=== PATIENT | female | born 1985 | race Two or more races ===

== ENCOUNTER → 2016-08-07 | Outpatient (REF) | payer OTHER ==
[~2016-08-07] MED LIST: /RANI15TA PO; ACET50TA PO; IBUP200T2 PO; LABE10TAB PO; PRENTAB9 PO; ZOLO100T PO
== END ==
LOC: M SFHCLERA 19:56
PROVIDERS: ATTEND Physician Assistant
DX: R30.0 Dysuria (principal)

== ENCOUNTER → 2016-10-19 | Outpatient (REF) | payer OTHER | LOC: M SFHCLERA 18:06 | PROVIDERS: ATTEND Physician Assistant | DX: R30.0 Dysuria (principal) ==

== ENCOUNTER → 2017-01-07 | Outpatient (CLI) | payer OTHER ==
[2017-01-07 20:00] LABS: ALBUMIN 3.7 GM/DL (3.2-5.2); ALBUMIN/GLOBULIN RATIO 0.95 (1.00-1.93); ALKALINE PHOSPHATASE 130 U/L (45-117); ALT/SGPT 64 U/L (12-78); AST/SGOT 24 U/L (15-37); BILIRUBIN,DIRECT < 0.1 MG/DL (0.0-0.2); BILIRUBIN,TOTAL 0.2 MG/DL (0.2-1.0); TOTAL PROTEIN 7.6 GM/DL (6.4-8.2)
== END ==
LOC: M LAB 18:37
PROVIDERS: ATTEND Family Medicine
DX: F11.20 Opioid dependence, uncomplicated (principal)

== ENCOUNTER → 2018-04-22 | Outpatient (CLI) | payer OTHER ==
[2018-04-22 12:48] LABS: ALBUMIN 3.9 GM/DL (3.2-5.2); BILIRUBIN,DIRECT 0.1 MG/DL (0.0-0.2); BILIRUBIN,TOTAL 0.2 MG/DL (0.2-1.0); TOTAL PROTEIN 7.1 GM/DL (6.4-8.2)
== END ==
LOC: M LAB 11:06
PROVIDERS: ATTEND Family Medicine
DX: F11.20 Opioid dependence, uncomplicated (principal)

== ENCOUNTER → 2018-05-11 | Outpatient (REF) | payer OTHER | LOC: M SFHCLERA 13:53 | PROVIDERS: ATTEND Nurse Practitioner Family | DX: R53.81 Other malaise (principal) ==

== ENCOUNTER → 2018-08-20 | Outpatient (CLI) | payer OTHER ==
[~2018-08-20] MED LIST changes: -/RANI15TA PO; -ACET50TA PO; +MAPA500T17 PO; +RANI1TAB17 PO
[2018-08-20 10:37] LABS: BASO % 0.4 % (0.0-1.0); EOS # 0.5 10^3/uL (0.0-0.50); EOS % 4.2 % (0.0-3.0); HEMATOCRIT 42.5 % (36.0-47.0); HEMOGLOBIN 14.1 g/dl (12.0-15.5); LYMPH % 27.7 % (24.0-44.0); MEAN CORPUSCULAR HGB CONC 33.2 g/dl (32.0-36.5); MEAN CORPUSCULAR VOLUME 87.3 fl (80.0-96.0); MONO # 0.8 10^3/uL (0.0-0.8); MONO % 7.1 % (0.0-5.0); NEUTROPHILS # 6.5 10^3/uL (1.8-7.7); NEUTROPHILS % 60.3 % (36.0-66.0); PLATELET COUNT, AUTOMATED 231 10^3/uL (150-450); RED BLOOD COUNT 4.87 10^6/uL (4.00-5.40); WHITE BLOOD COUNT 10.8 10^3/uL (4.0-10.0)
[2018-08-20 10:38] LABS: AMORPHOUS SEDIMENT MODERATE (NEGATIVE); APPEARANCE, URINE CLOUDY (CLEAR); BACTERIA, URINE AUTO NEGATIVE (NEGATIVE); BILIRUBIN, URINE AUTO NEGATIVE (NEGATIVE); BLOOD, URINE BLOOD NEGATIVE (NEGATIVE); COLOR, URINE YELLOW (YELLOW); GLUCOSE, URINE (UA) AUTO NEGATIVE (NEGATIVE); KETONE, URINE AUTO NEGATIVE (NEGATIVE); LEUKOCYTE ESTERASE, URINE AUTO NEGATIVE (NEGATIVE); NITRITE, URINE AUTO NEGATIVE (NEGATIVE); PROTEIN, URINE AUTO NEGATIVE (NEGATIVE); RBC, URINE AUTO 1 /HPF (0-3); SPECIFIC GRAVITY URINE AUTO 1.017 (1.002-1.035); SQUAMOUS EPITHELIAL CELL UR AU 1 /HPF (0-6); WBC, URINE AUTO 0 /HPF (0-3)
[2018-08-20 11:08] LABS: ALBUMIN 4.3 GM/DL (3.2-5.2); ALT/SGPT 62 U/L (12-78); BILIRUBIN,TOTAL 0.1 MG/DL (0.2-1.0); BLOOD UREA NITROGEN 14 MG/DL (7-18); CALCIUM LEVEL 9.6 MG/DL (8.5-10.1); CARBON DIOXIDE LEVEL 24 MEQ/L (21-32); CHLORIDE LEVEL 109 MEQ/L (98-107); CHOLESTEROL LEVEL 236 MG/DL (<200); CREATININE FOR GFR 0.97 MG/DL (0.55-1.30); FREE T4 0.89 NG/DL (0.76-1.46); GLOMERULAR FILTRATION RATE > 60.0 (>60); GLUCOSE, FASTING 91 MG/DL (70-100); HDL CHOLESTEROL 46 MG/DL (>40); LDL CHOLESTEROL 163 MG/DL (<100); NON-HDL-C 190 MG/DL; POTASSIUM SERUM 4.1 MEQ/L (3.5-5.1); SODIUM LEVEL 141 MEQ/L (136-145); TOTAL PROTEIN 7.6 GM/DL (6.4-8.2); TRIGLYCERIDES LEVEL 136 MG/DL (<150)
[2018-08-20 11:17] LABS: VITAMIN B12 LEVEL 590 PG/ML (247-911)
== END ==
LOC: M LAB 09:57
PROVIDERS: ATTEND Family Medicine
DX: I73.00 Raynaud's syndrome without gangrene (principal); E55.9 Vitamin D deficiency, unspecified

== ENCOUNTER 2018-10-20 12:06 | Emergency (ER) | payer OTHER ==
[~2018-10-20] VITALS: Ht 165.1 cm; Wt 72.7 kg
[2018-10-20] MEDS ORDERED: LORA-674 (12:14)
[2018-10-20] MEDS ORDERED: TOPI50TA9 (12:14)
[2018-10-20] MEDS ORDERED: DESV100T3 (12:14)
[2018-10-20] MEDS ORDERED: GABA-843 (12:14)
[2018-10-20] MEDS ORDERED: BUPREN/NALOX (12:14)
[2018-10-20] MEDS ORDERED: GUAN2TAB (12:14)
[2018-10-20] MEDS ORDERED: D3-5CAP (12:14)
[2018-10-20] MEDS ORDERED: LAMO100T (12:14)
[2018-10-20] MEDS ORDERED: NIFE30TA7 (12:14)
[2018-10-20 13:10] LABS: BASO % 0.1 % (0.0-1.0); EOS # 0.1 10^3/uL (0.0-0.50); EOS % 0.4 % (0.0-3.0); HEMATOCRIT 35.9 % (36.0-47.0); HEMOGLOBIN 11.9 g/dl (12.0-15.5); LYMPH # 1.8 10^3/uL (1.5-4.5); LYMPH % 12.7 % (24.0-44.0); MEAN CORPUSCULAR HEMOGLOBIN 29.8 pg (27.0-33.0); MEAN CORPUSCULAR HGB CONC 33.1 g/dl (32.0-36.5); MEAN CORPUSCULAR VOLUME 89.8 fl (80.0-96.0); MONO # 1.5 10^3/uL (0.0-0.8); MONO % 10.6 % (0.0-5.0); NEUTROPHILS # 10.6 10^3/uL (1.8-7.7); NEUTROPHILS % 75.8 % (36.0-66.0); PLATELET COUNT, AUTOMATED 203 10^3/uL (150-450)
[2018-10-20 13:37] LABS: HCG, SERUM QUALITATIVE NEGATIVE (NEGATIVE)
[2018-10-20 13:40] LABS: ALT/SGPT 104 U/L (12-78); BILIRUBIN,TOTAL 0.4 MG/DL (0.2-1.0); BLOOD UREA NITROGEN 7 MG/DL (7-18); CALCIUM LEVEL 8.9 MG/DL (8.5-10.1); CARBON DIOXIDE LEVEL 28 MEQ/L (21-32); CHLORIDE LEVEL 105 MEQ/L (98-107); CREATININE FOR GFR 0.77 MG/DL (0.55-1.30); GLOMERULAR FILTRATION RATE > 60.0 (>60); GLUCOSE, FASTING 121 MG/DL (70-100); POTASSIUM SERUM 4.2 MEQ/L (3.5-5.1); SODIUM LEVEL 138 MEQ/L (136-145)
[2018-10-20 13:41] LABS: ALBUMIN 3.5 GM/DL (3.2-5.2); BILIRUBIN,DIRECT < 0.1 MG/DL (0.0-0.2); LIPASE 81 U/L (73-393)
[2018-10-20] MEDS ORDERED: ONDANSETRON 4MG/2ML VIAL (J2405) IV ONE (15:00)
[2018-10-20] MEDS ORDERED: KETOROLAC 30 MG/ML VIAL (J1885) IV ONE (15:00)
--- NOTE | 2018-10-20 16:46 | REP ---
REASON: Flank pain. PRIORS: None. The lung bases are clear. The patient is status-post cholecystectomy. Limited evaluation of the liver and spleen show no gross abnormalities. Limited evaluation of the pancreas and adrenal glands showed no gross abnormalities. There is no nephroureterolithiasis, hydronephrosis, or hydroureter. There are no urinary bladder calcifications. Limited evaluation of the bowel loops and their mesenteries are showed no gross abnormalities. Limited evaluation of the abdominal aorta and paraaortic regions show no gross abnormalities. Bone window technique throughout the examination shows the osseous structures to be within normal limits. IMPRESSION: Negative limited exam as described above. Electronically Signed by Getachew Cardenas DO 10/20/2018 05:19 P
[2018-10-20] MEDS ORDERED: PHEN-501 PO (17:20)
[2018-10-20] MEDS ORDERED: MACR100C43 PO (17:20)
[2018-10-20] MEDS ORDERED: KETO10TAB PO (17:20)
[2018-10-20 17:28] VITALS: BP 107/67
== END 2018-10-20 17:32 | disposition home or self-care (01) ==
LOC: M ED 12:06
DX: N39.0 Urinary tract infection, site not specified (principal); Z87.448 Personal history of other diseases of urinary system; I10 Essential (primary) hypertension; Z72.0 Tobacco use
CPT/HCPCS: 74176; 80048; 80076; 81001; 83690; 84703; 85025; 87088; 87186; 96374; 96375; 99284; J1885; J2405

== ENCOUNTER 2019-02-21 14:21 | Emergency (ER) | payer OTHER ==
[~2019-02-21] VITALS: Ht 165.1 cm; Wt 74.1 kg
[~2019-02-21 14:21] MED LIST changes: +BUPREN/NALOX; +D3-5CAP; +DESV100T3; +GABA-843; +GUAN2TAB; +KETO10TAB PO; +LAMO100T3; +LORA-674; +MACR100C43 PO; +NIFE30TA7; +PHEN-501 PO; +TOPI50TA9
[2019-02-21] MEDS ORDERED: ATOM80CA6 (14:45)
[2019-02-21 15:09] LABS: BASO % 0.3 % (0.0-1.0); EOS # 0.1 10^3/uL (0.0-0.5); EOS % 1.1 % (0.0-3.0); HEMATOCRIT 43.8 % (36.0-47.0); HEMOGLOBIN 14.2 g/dl (12.0-15.5); LYMPH % 21.3 % (24.0-44.0); MEAN CORPUSCULAR HEMOGLOBIN 28.7 pg (27.0-33.0); MEAN CORPUSCULAR HGB CONC 32.4 g/dl (32.0-36.5); MEAN CORPUSCULAR VOLUME 88.7 fl (80.0-96.0); MONO # 0.7 10^3/uL (0.0-0.8); MONO % 7.2 % (0.0-5.0); NEUTROPHILS # 6.6 10^3/uL (1.5-8.5); NEUTROPHILS % 69.9 % (36.0-66.0); PLATELET COUNT, AUTOMATED 223 10^3/uL (150-450); RED BLOOD COUNT 4.94 10^6/uL (4.00-5.40); WHITE BLOOD COUNT 9.4 10^3/uL (4.0-10.0)
[2019-02-21 15:57] LABS: ALBUMIN 4.2 GM/DL (3.2-5.2); ALT/SGPT 27 U/L (12-78); BILIRUBIN,DIRECT < 0.1 MG/DL (0.0-0.2); BILIRUBIN,TOTAL 0.3 MG/DL (0.2-1.0); BLOOD UREA NITROGEN 8 MG/DL (7-18); CALCIUM LEVEL 9.3 MG/DL (8.5-10.1); CARBON DIOXIDE LEVEL 24 MEQ/L (21-32); CHLORIDE LEVEL 108 MEQ/L (98-107); CREATININE FOR GFR 0.84 MG/DL (0.55-1.30); GLOMERULAR FILTRATION RATE > 60.0 (>60); GLUCOSE, FASTING 99 MG/DL (70-100); HCG, SERUM QUANTITATIVE 16178 MIU/ML; LIPASE 102 U/L (73-393); POTASSIUM SERUM 4.1 MEQ/L (3.5-5.1); SODIUM LEVEL 139 MEQ/L (136-145); TOTAL PROTEIN 8.1 GM/DL (6.4-8.2)
[2019-02-21 17:18] VITALS: BP 128/72
[2019-02-21] MEDS ORDERED: ONDA4TAB6 PO (17:36)
[2019-02-21] MEDS ORDERED: MACR100C43 PO (17:36)
[2019-02-21] MEDS ORDERED: NITROFURANTOIN (MACROBID) 100 MG CAP PO ONE (17:45)
[2019-02-21] MEDS ORDERED: ONDANSETRON 4 MG ORAL DISINTEGRATING TAB (Q0162 PER 1MG) PO ONE (17:45)
--- NOTE | 2019-02-22 09:01 | REP ---
PELVIC AND ENDOVAGINAL PROBE OB ULTRASOUND: 02/21/2019. CLINICAL HISTORY: First trimester , cramping. By LMP, 5 weeks 6 days. FINDINGS: Transabdominal and endovaginal probes were performed with the bladder underfilled. Uterus is anteverted and anteflexed. There is a gestational sac in the fundus. On the EV probe, there is a yolk sac evident as well as a pole, and pole shows heart activity at 96 BPM and it measures 3 mm, corresponding to 5 weeks 6 days and giving EDC 10/18/2019. No subchorionic bleed. Left ovary is 2.2 x 1.4 x 2.1 cm. Shows normal Doppler tracing with resistive index 0.42 and no adjacent free fluid. The right ovary measures 3.1 x 2.8 x 2.5 cm. There is a presumed hemorrhagic corpus luteum and measuring 2.6 x 2.2 x 1.1 cm. Right ovarian Doppler shows resistive index of 0.4. There is no color flow within the complex hemorrhagic follicle or hemorrhagic corpus luteum. Other smaller follicles are seen. IMPRESSION: 1. Single intrauterine gestation at 5 weeks 6 days by crown-rump length, precisely matching LMP and giving EDC 10/18/2019. 2. Right ovarian hemorrhagic corpus luteum. No subchorionic bleed. Left ovary unremarkable. 3. heart rate 96 BPM. Electronically Signed by Luisito Mendes MD 02/22/2019 09:12 A
== END 2019-02-21 17:46 | disposition home or self-care (01) ==
LOC: M ED 14:21
DX: N30.90 Cystitis, unspecified without hematuria (principal); Z32.01 Encounter for pregnancy test, result positive; I10 Essential (primary) hypertension; E78.00 Pure hypercholesterolemia, unspecified; F41.9 Anxiety disorder, unspecified; F32.9 Major depressive disorder, single episode, unspecified; F17.200 Nicotine dependence, unspecified, uncomplicated; Z88.5 Allergy status to narcotic agent; Z79.899 Other long term (current) drug therapy
CPT/HCPCS: 36415; 76801; 76817; 80048; 80076; 81001; 83690; 84702; 85025; 87088; 87186; 93976; 99283; Q0162

== ENCOUNTER → 2019-03-30 | Outpatient (REF) | payer OTHER ==
[~2019-03-30] MED LIST changes: +ATOM80CA6; +NIFE1TAB52; -NIFE30TA7; +ONDA4TAB6 PO
== END ==
LOC: M PLALAB 13:56
PROVIDERS: ATTEND Advanced Practice Midwife
DX: Z34.91 Encounter for supervision of normal pregnancy, unspecified, first trimester (principal)

== ENCOUNTER → 2019-04-01 | Outpatient (CLI) | payer OTHER ==
[2019-04-01 14:04] LABS: BASO % 0.1 % (0.0-1.0); EOS # 0.1 10^3/uL (0.0-0.5); EOS % 1.2 % (0.0-3.0); HEMATOCRIT 36.1 % (36.0-47.0); HEMOGLOBIN 11.7 g/dl (12.0-15.5); LYMPH # 1.9 10^3/uL (1.5-5.0); LYMPH % 18.2 % (24.0-44.0); MEAN CORPUSCULAR HGB CONC 32.4 g/dl (32.0-36.5); MEAN CORPUSCULAR VOLUME 89.6 fl (80.0-96.0); MONO # 0.5 10^3/uL (0.0-0.8); MONO % 5.2 % (0.0-5.0); NEUTROPHILS # 7.6 10^3/uL (1.5-8.5); NEUTROPHILS % 74.8 % (36.0-66.0); PLATELET COUNT, AUTOMATED 212 10^3/uL (150-450); RED BLOOD COUNT 4.03 10^6/uL (4.00-5.40); WHITE BLOOD COUNT 10.2 10^3/uL (4.0-10.0)
[2019-04-01 14:24] LABS: CREATININE,RANDOM URINE 93.5 MG/DL
[2019-04-01 14:25] LABS: ALT/SGPT 38 U/L (12-78); BILIRUBIN,TOTAL 0.2 MG/DL (0.2-1.0); CREATININE FOR GFR 0.59 MG/DL (0.55-1.30); GLOMERULAR FILTRATION RATE > 60.0 (>60); LDH LACTATE DEHYDROGENASE 158 U/L (84-246); URIC ACID 2.4 MG/DL (2.6-6.0)
[2019-04-01 14:45] LABS: RUBELLA IgG QUALITATIVE IMMUNE (IMMUNE)
[2019-04-01 15:13] LABS: HEPATITIS C VIRUS ABY INDEX < 0.0 INDEX (<0.8); HIV 1&2 SCREEN CENTAUR NEGATIVE (NEGATIVE)
[2019-04-01 15:44] LABS: CHLAMYDIA DNA AMPLIFICATION NEGATIVE (NEGATIVE); GC DNA AMPLIFICATION NEGATIVE (NEGATIVE)
== END ==
LOC: M PLALAB 11:20
PROVIDERS: ATTEND Advanced Practice Midwife
DX: Z34.91 Encounter for supervision of normal pregnancy, unspecified, first trimester (principal)

== ENCOUNTER → 2019-05-28 | Outpatient (CLI) | payer OTHER ==
--- NOTE | 2019-05-29 07:05 | REP ---
Clinical: Anatomical evaluation. Comparison: None . Findings: Examination demonstrates a single live intrauterine in transverse (head to maternal right) presentation. motion is identified by technologist. Placenta is noted right lateral and grade I I without evidence for placenta previa or abruption. Amniotic fluid volume is normal. Cervix measures 3.1 cm in length and appears closed. No evidence for nuchal cord. Gestational age by LMP 19 weeks 4 days with FAVIOLA 10/18/2019 . Gestational age by current measurements 19 weeks 3 days with FAVIOLA 10/19/2019 . FHR equals 138 beats per minute. BPD 4.6 cm 19 weeks 6 days HC 17.4 cm 19 weeks 6 days AC 14.2 cm 19 weeks 4 days FL 3.1 cm 19 weeks 3 days HL 3.0 cm 19 weeks 5 days HC/AC ratio 1.22 Estimated weight 300 grams ( 45th percentile). Anatomical assessment demonstrates normal structures including cranium, choroid plexus, cavum, cerebellum/posterior fossa, facial features, lungs, diaphragm, stomach, cord insertion/three-vessel cord, kidneys/bladder, spine, and extremities. Impression: 1. Single live intrauterine in transverse lie demonstrating appropriate interval growth. 2. Limited evaluation of the heart/ventricular outflow tracts. Remainder of the anatomical assessment is complete and normal.
== END ==
LOC: M WHC 13:03
PROVIDERS: ATTEND Obstetrics & Gynecology
DX: Z3A.15 15 weeks gestation of pregnancy (principal)

== ENCOUNTER → 2019-07-22 | Outpatient (REF) | payer OTHER ==
[2019-07-22 18:35] LABS: HEMOGLOBIN 11.4 g/dl (12.0-15.5); MEAN CORPUSCULAR HEMOGLOBIN 29.4 pg (27.0-33.0); MEAN CORPUSCULAR HGB CONC 32.6 g/dl (32.0-36.5); MEAN CORPUSCULAR VOLUME 90.2 fl (80.0-96.0); PLATELET COUNT, AUTOMATED 173 10^3/uL (150-450); RED BLOOD COUNT 3.88 10^6/uL (4.00-5.40); WHITE BLOOD COUNT 11.1 10^3/uL (4.0-10.0)
== END ==
LOC: M PLALAB 14:33
PROVIDERS: ATTEND Specialist
DX: Z34.82 Encounter for supervision of other normal pregnancy, second trimester (principal)

== ENCOUNTER → 2019-07-22 | Outpatient (CLI) | payer OTHER ==
[2019-07-22 18:55] LABS: ALT/SGPT 28 U/L (12-78); BILIRUBIN,DIRECT < 0.1 MG/DL (0.0-0.2); BILIRUBIN,TOTAL 0.2 MG/DL (0.2-1.0); TOTAL PROTEIN 6.6 GM/DL (6.4-8.2)
== END ==
LOC: M PLALAB 14:28
PROVIDERS: ATTEND Family Medicine
DX: F11.11 Opioid abuse, in remission (principal)

== ENCOUNTER 2019-09-11 07:45 | Inpatient (IN) | payer OTHER ==
[2019-09-11] VITALS (8 sets, daily range): BP systolic 106–147; BP diastolic 55–81
[~2019-09-11] VITALS: Ht 165.1 cm; Wt 70.2 kg
[~2019-09-11 07:45] MED LIST changes: +GABA-282; -GABA-843
[2019-09-11] MEDS ORDERED: PROZ40CA PO (08:47)
[2019-09-11] MEDS ORDERED: COLA100C5 PO (08:47)
[2019-09-11] MEDS ORDERED: BUPR8SUB SL (08:47)
[2019-09-11] MEDS ORDERED: PRENTAB9 PO (08:47)
[2019-09-11] MEDS ORDERED: lamoTRIgine 100MG TAB PO SCH (09:00)
[2019-09-11] MEDS ORDERED: LACTATED RINGER'S 1000 ML IV STA (09:00)
[2019-09-11] MEDS ORDERED: PENICILLIN G POTASSIUM IV 5 MU in D5W MINI-BAG PLUS 100 ML IV STA (09:00)
[2019-09-11] MEDS ORDERED: BETAMETHASONE SOLUSPAN 6MG/ML 5ML VIAL (J0702 PER 3MG) IM SCH (09:30)
[2019-09-11 09:43] LABS: HEMOGLOBIN 11.5 g/dl (12.0-15.5); MEAN CORPUSCULAR HEMOGLOBIN 29.2 pg (27.0-33.0); MEAN CORPUSCULAR HGB CONC 32.9 g/dl (32.0-36.5); MEAN CORPUSCULAR VOLUME 88.8 fl (80.0-96.0); PLATELET COUNT, AUTOMATED 131 10^3/uL (150-450); RED BLOOD COUNT 3.94 10^6/uL (4.00-5.40); WHITE BLOOD COUNT 21.5 10^3/uL (4.0-10.0)
[2019-09-11] MEDS ORDERED: PROMETHAZINE INJ 25 MG/ML VIAL (J2550) IV ONE (10:00)
[2019-09-11] MEDS ORDERED: BUTORPHANOL 2 MG/ML INJ (J0595) IV ONE (10:00)
[2019-09-11 10:13] LABS: ALT/SGPT 16 U/L (12-78); BILIRUBIN,TOTAL 0.2 MG/DL (0.2-1.0); CREATININE FOR GFR 0.55 MG/DL (0.55-1.30); GLOMERULAR FILTRATION RATE > 60.0 (>60); LDH LACTATE DEHYDROGENASE 187 U/L (84-246); URIC ACID 3.7 MG/DL (2.6-6.0)
--- NOTE | 2019-09-11 10:13 | HPEPDOC ---
Obstetrical History & Physical General Date of Admission Sep 11, 2019 at 08:47 History of Present Illness Chief Complaint: Contractions, pre-term, LOF, pre-term Information Provided By: Patient Age: 34 : 4 Term: 3 Pre-term: 0 Abortions: 0 Livin Care Care: Good Care Dating Final EDC: Oct 18, 2019 Final EDC by: 1st trimester (US) EGA at Admission: 34 (+5) Antepartum Course Admission Weight (lbs.): 158 Past Medical History Past Obstetrical History #1: Past Obstetrical History: Primgravida (2004) Type of Delivery: Spontaneous Vaginal Del. Sex of Infant: Female (7#11) Complications: No (adopted out) Past Obstetrical History #2: Past Obstetrical History: Multigravida (2007) Type of Delivery: Spontaneous Vaginal Del. Sex of : Female (5#6) Complications: No (adopted out) Past Obstetrical History #3: Past Obstetrical History: Multigravida (2013) Type of Delivery: Spontaneous Vaginal Del. Sex of Infant: Male (7#12) Complications: No LOFTSMAN/WOMAN History: Abnormal Pap (LEEP 6 years ago) Past Medical History Surgical History: Appendectomy, Gallbladder, Other (hand) Family History Significant Family History: No pertinent family hx Social History Marital Status: Single Psychosocial History: Anxiety, Bipolar, Depression * Smoker: current smoker Alcohol: Denies Drugs: other (hx addiction, clean x 5 years. currently on subutex. occasional marijuana) Imunizations Tdap status: needs Allergies Coded Allergies: codeine (Verified Allergy, Severe, eyes swell and scalp itches, 10/20/18) Medications Scheduled Buprenorphine HCl (Buprenorphine HCl) 8 Mg Tab.subl, 12 MG SL DAILY Docusate Sodium (Colace) 100 Mg Capsule, 1 CAP PO BID Fluoxetine HCl (Prozac) 40 Mg Capsule, 60 MG PO DAILY No.137/Iron/Folic Acd ( Vitamin Tablet) 1 Each Tablet, 1 TAB PO DAILY Scheduled PRN Acetaminophen (Tylenol) 500 Mg Tab, 1,000 MG PO Q4HP PRN for PAIN Ondansetron (Ondansetron Odt) 4 Mg Tab.rapdis, 1 TAB PO Q6-8HP PRN for nausea/vomiting Miscellaneous Medications Nifedipine (Nifedipine ER) 30 Mg Tab.er.24 [Bupren/Nalox] Physical Examination Physical Examination GENERAL: Alert and oriented times three. Appears uncomfortable BREAST: . ABDOMEN: Gravid and non-tender to touch. FETUS: Is vertex (VTX) by sterile vaginal examination (SVE), fetus is vertex (VTX) by Carlos. Bedside sono confirms presentation HEART RATE: Regular rate and rhythm. LUNGS: Clear to auscultation (CTA). EXTREMITIES: No edema. No clonus. Deep tendon reflexes (DTRs) + 2. Vital Signs/I&O Vital Signs Date Time Temp Pulse Resp B/P (MAP) Pulse Ox O2 Delivery O2 Flow Rate FiO2 09/11/19 08:07 98.2 78 18 112/58 (76) Laboratory Data 24H LABS Laboratory Tests 2 09/11/19 08:58: Serology Scanned Report Hepatitis B Testing 09/11/19 09:32: CBC/BMP Microbiology Microbiology 09/11/19 Group B Streptococcus Screen (FUNMI), Received Pending Pertinent Laboratoy Data Blood Type: A+ HIV: Negative Hepatitis B: Negative Hepatitis C: Negative Rapid Plasma Reagin: Nonreactive Rubella: Immune Chlamydia/Gonorrhea: Negative Group B Streptococcus: Unknown (obtained) Glucose Tolerance Test: 83 Diag/Inter Therapy [facility] low risk Anatomy Ultrasound Ultrasound Date: May 28, 2019 Placenta Location: Right Lateral Normal Anatomy: Yes (limited evaluation of cardiac structures) Placenta Previa: No Estimated Weight (grams): 300 (45%) Other Ultrasounds 02/21/2019 dating 5w6d FAVIOLA 10/18/2019 Steroid Therapy Steroid Therapy: Yes (initiated on admit) Date #1: Sep 11, 2019 Vaginal Examination Dilation: 2cm (-3) Effacement: 80% Station: -1 Cervical Consistency: Medium Cervical Position: Posterior Presentation: Cephalic presentation (confirmed by bedside sono) Assessment Heart Rate (FHR): 145 Variability: Moderate Accelerations: Positive Decelerations: Variable Tocometer Contractions: Yes Frequency: irregular, every 2-5 min. (difficult to trace on monitor) Strength: palpated as mild Assessment/Plan Assessment Eusebia is a 34-year-old (G)4 para (P)3-0-0-3 at 34+5 weeks by 5-week ultrasound. Presents to Labor and Delivery (L&D) with complaints of LOF @ 0300 with onset UC on and off yesterday, stronger and more unc omfortable today. Reports light bloody show. Spec exam moderate clear pink tinged fluid pooling and draining from cervix. + nitrazine, fern inconclusive. SVE 2-3/-1. Plan Admit and orient per consult Dr Burgess Rayon Coner and consent. Diet: Clear liquids. Group B Streptococcus (GBS) pending, prophylaxis ordered. Labs and intravenous (IV) per unit protocol. Counseled on Pitocin and induction of labor (IOL) once Betamethasone complete if not delivered Lactated Ringers (LR): Bolus 500 mL, then at 125 mL/hr. Plans epidural once active Anticipate normal spontaneous delivery (). C-S as appropriate. Susan Salazar CNM Sep 11, 2019 09:58
--- NOTE | 2019-09-11 11:20 | IPNPDOC ---
Text Note Date of Service The patient was seen on 09/11/19. NOTE Crying with UC FH Cat I UC 3-4 minutes apart, moderate SVE 6/100/0 Desires epidural. NICU aware of pt status VS,Aashishbone, I+O VS, Aashishbone, I+O Laboratory Tests 09/11/19 09:32 Vital Signs Date Time Temp Pulse Resp B/P (MAP) Pulse Ox O2 Delivery O2 Flow Rate FiO2 09/11/19 10:33 18 09/11/19 08:07 98.2 78 112/58 (76) Susan Salazar CNM Sep 11, 2019 11:20
[2019-09-11] MEDS ORDERED: FENTANYL 2MCG/ML ROPIVACAINE 0.2% IN 0.9% NACL 100ML IVBAG As Ordered ONE (11:23)
[2019-09-11] MEDS ORDERED: OXYTOCIN 30 UNITS IN 0.9% NaCl 500ML IV BAG (J2590) As Ordered ONE (11:40)
[2019-09-11 11:56] LABS: CREATININE,RANDOM URINE 53.9 MG/DL; TOTAL PROTEIN,RANDOM URINE 23.6 MG/DL (0.0-12.0)
[2019-09-11 12:03] LABS: CORD GAS ABE A -2.5; CORD GAS HCO3 A 21.9 MEQ/L; CORD GAS O2 SAT A 44.6 %; CORD GAS PH A 7.391 UNITS; CORD GAS PO2 A 17.3 mmHg; CORD GAS SBC A 21.1 MEQ/L; CORD GAS TCO2 A 23.1 MEQ/L
[2019-09-11 12:05] LABS: CORD GAS ABE V -2.5; CORD GAS HCO3 V 20.4 MEQ/L; CORD GAS O2 SAT V 70.8 %; CORD GAS PCO2 V 30.4 mmHg; CORD GAS PH V 7.444 UNITS; CORD GAS SBC V 21.7 MEQ/L; CORD GAS TCO2 V 21.3 MEQ/L
[2019-09-11] MEDS ORDERED: MORPHINE 4 MG/ML 1ML VIAL/SYRINGE (J2270) IV ONE ×2 (12:30→13:00)
[2019-09-11] MEDS ORDERED: ceFAZolin 2 GM/D5W 50 ML IV BAG (J0690 PER 500MG) As Ordered ONE (12:50)
[2019-09-11] MEDS ORDERED: LIDOCAINE 1% SDV 30ML VIAL As Ordered ONE (13:07)
--- NOTE | 2019-09-11 13:08 | DNPDOC ---
[facility] Delivery Note Delivery Note DATE OF DELIVERY: 09/11/2019 PREDELIVERY DIAGNOSIS: 34-5/7 weeks' gestation and labor. POST DELIVERY DIAGNOSIS: Delivered. PROCEDURE: Spontaneous vaginal delivery. PROVIDER: Susan Salazar CNM ANESTHESIA: none. ESTIMATED BLOOD LOSS: Minimal for delivery. See Dr Burgess OR note for EBL. FINDINGS: 4 pound 8 ounce, 2050gm female infant, Score 7/8, no nuchal cord. DELIVERY SUMMARY: Patient is a 34-year-old 4 now para 3-1-0-4 who was admitted to labor and delivery for premature rupture of membranes. She progressed rapidly, unable to obtain epidural. Fully dilated 1138. Viable female delivered JAMES without difficulty 1143. Spontaneous respirations with stimulation . Cord doubly clamped and cut, to warmer for NICU evaluation. Cord gases obtained and pending. Apgars 7/8. Retained placenta after attempt to manually extract. Dr Burgess in to evaluate patient and take to OR for removal/D&C. Perineum noted to be intact. Susan Salazar CNM Sep 11, 2019 13:08
[2019-09-11] MEDS ORDERED: propofoL 200 MG/20 ML VIAL As Ordered ONE ×2 (13:24→14:12)
[2019-09-11] MEDS ORDERED: MIDAZOLAM INJ 2MG/2ML VIAL (J2250 PER 1MG) As Ordered ONE (13:24)
[2019-09-11] MEDS ORDERED: LIDOCAINE 2% 100MG/5ML SDV (FOR ANES.) As Ordered ONE (13:24)
[2019-09-11] MEDS ORDERED: fentaNYL 100 MCG/2 ML INJECTION (J3010) As Ordered ONE (13:24)
[2019-09-11] MEDS ORDERED: SUGAMMADEX SODIUM 500 MG/5 ML VIAL (BRIDION) As Ordered ONE (13:24)
[2019-09-11] MEDS ORDERED: ONDANSETRON 4MG/2ML VIAL As Ordered ONE (13:24)
[2019-09-11] MEDS ORDERED: SUCCINYLCHOLINE 100 MG/5 ML SYRINGE (J0330) As Ordered ONE (13:24)
[2019-09-11] MEDS ORDERED: dexameTHASONE 4 MG/ML 1ML VIAL (J1100 PER 1MG) As Ordered ONE (13:24)
[2019-09-11] MEDS ORDERED: METOCLOPRAMIDE INJ 10MG/2ML VIAL (J2765 PER 1) As Ordered ONE (13:24)
[2019-09-11] MEDS ORDERED: ROCURONIUM BROMIDE 50 MG/5 ML VIAL As Ordered ONE (13:24)
[2019-09-11] MEDS ORDERED: PENICILLIN G POTASSIUM IV 2.5 MU in IV 1 EA IV SCH (14:00)
[2019-09-11] MEDS ORDERED: KETOROLAC 60MG 2ML VIAL As Ordered ONE (14:02)
[2019-09-11] MEDS ORDERED: METHYLERGONOVINE MALEATE 0.2 MG/ML VIAL (J2210) As Ordered ONE (14:16)
[2019-09-11] MEDS ORDERED: OXYTOCIN INJ 10 UNITS/ML VIAL (J2590) As Ordered ONE ×2 (14:16→14:27)
[2019-09-11] MEDS ORDERED: CARBOPROST TROMETHAMINE 250 MCG/ML AMP As Ordered ONE (14:23)
[2019-09-11] MEDS ORDERED: ceFAZolin SOD 2 GM in IV 1 EA IV ONE (14:30)
[2019-09-11] MEDS ORDERED: PHENYLephrine 500MCG 5ML (100MCG/ML) SYRINGE As Ordered ONE (14:32)
[2019-09-11] MEDS ORDERED: ACETAMINOPHEN 1000MG 100ML IV BTL (OFIRMEV) (J0131 PER 10MG) As Ordered ONE (15:02)
[2019-09-11] MEDS ORDERED: LR 1,000 ML IV SCH (15:15)
[2019-09-11] MEDS ORDERED: ACETAMINOPHEN *IV* 1,000 MG in APPROPRIATE DILUENT 0 ML IV ONE (15:15)
[2019-09-11] MEDS ORDERED: fentaNYL 100 MCG/2 ML INJECTION (J3010) IV PRN (15:15)
[2019-09-11] MEDS ORDERED: OXYTOCIN DRIP 30 UNITS in IV 1 EA IV SCH ×4 (15:29)
[2019-09-11] MEDS ORDERED: IBUPROFEN 800 MG TAB PO PRN (15:30)
[2019-09-11] MEDS ORDERED: DIBUCAINE 1% OINTMENT 30GM TOP PRN (15:30)
[2019-09-11] MEDS ORDERED: ACETAMINOPHEN 500 MG TAB PO PRN (15:30)
[2019-09-11] MEDS ORDERED: DOCUSATE SODIUM 100MG CAPSULE PO PRN (15:30)
[2019-09-11] MEDS ORDERED: RHOGAM 300 MCG (1500 IU) INJ (J2790) IM SCH (15:30)
[2019-09-11] MEDS ORDERED: ACETAMINOPHEN TAB 650MG DOSE (2X325MG) PO PRN (15:30)
[2019-09-11] MEDS ORDERED: MEASLES,MUMPS,RUBELLA VACCINE INJ (MMR-II) (90707) SC SCH (15:30)
[2019-09-11] MEDS ORDERED: ONDANSETRON 4MG/2ML VIAL IV PRN (15:30)
[2019-09-11] MEDS ORDERED: IBUPROFEN 600MG TAB PO PRN (15:30)
[2019-09-11] MEDS ORDERED: ANUSOL HC CREAM 30GM TOP PRN (15:30)
[2019-09-11] MEDS: METHYLERGONOVINE MALEATE 0.2 MG TAB PO SCH ×2 (17:15→20:43)
[2019-09-11] MEDS: NIFEdipine 30 MG XL TAB PO SCH (17:16)
[2019-09-11 17:18] LABS: APPEARANCE, URINE CLEAR (CLEAR); BACTERIA, URINE AUTO NEGATIVE (NEGATIVE); BILIRUBIN, URINE AUTO NEGATIVE (NEGATIVE); BLOOD, URINE BLOOD 1+ (NEGATIVE); COLOR, URINE YELLOW (YELLOW); GLUCOSE, URINE (UA) AUTO NEGATIVE (NEGATIVE); KETONE, URINE AUTO 1+ mg/dL (NEGATIVE); LEUKOCYTE ESTERASE, URINE AUTO NEGATIVE (NEGATIVE); MUCUS, URINE SMALL (NEGATIVE); NITRITE, URINE AUTO NEGATIVE (NEGATIVE); PROTEIN, URINE AUTO NEGATIVE (NEGATIVE); RBC, URINE AUTO 1 /HPF (0-3); SPECIFIC GRAVITY URINE AUTO 1.017 (1.002-1.035); SQUAMOUS EPITHELIAL CELL UR AU 0 /HPF (0-6); UROBILINOGEN, URINE AUTO 0.2 mg/dL (0.0-2.0); WBC, URINE AUTO 1 /HPF (0-3)
[2019-09-11 17:48] LABS: AMPHETAMINES URINE REFLEX NEGATIVE (NEGATIVE); BARBITURATES URINE REFLEX NEGATIVE (NEGATIVE); BENZODIAZEPINES URINE REFLEX NEGATIVE (NEGATIVE); COCAINE METABOLITE URINE REFLE NEGATIVE (NEGATIVE); METHADONE URINE REFLEX NEGATIVE (NEGATIVE); OPIATES URINE REFLEX NEGATIVE (NEGATIVE); PHENCYCLIDINE URINE REFLEX NEGATIVE (NEGATIVE)
[2019-09-11 17:50] LABS: CANNABINOIDS URINE REFLEX PENDING CONFIRMATION (NEGATIVE)
[2019-09-11] MEDS: FLUoxetine 20 MG CAP PO SCH (18:51)
[2019-09-11] MEDS: KETOROLAC 30 MG/ML 1ML VIAL IV SCH (20:43)
[2019-09-11] MEDS ORDERED: lamoTRIgine 25MG TAB PO SCH (21:00)
[2019-09-11] MEDS ORDERED: OXYTOCIN INJ 20 UNITS in LR 1,000 ML IV SCH (22:00)
[2019-09-12 02:00] VITALS: BP 123/74
[2019-09-12] MEDS: KETOROLAC 30 MG/ML 1ML VIAL IV SCH ×2 (02:02→07:58)
[2019-09-12] MEDS: METHYLERGONOVINE MALEATE 0.2 MG TAB PO SCH ×2 (03:30→09:52)
[2019-09-12 06:00] VITALS: BP 125/61
--- NOTE | 2019-09-12 07:15 | DS.PDOC ---
Discharge Summary General Date of Admission Sep 11, 2019 at 08:47 Date of Discharge 09/12/2019 Discharge Summary PROCEDURES PERFORMED DURING STAY: Manual extraction of placenta under anesthesia; curettage; EBL 1000ml. ADMITTING DIAGNOSES: 1. Premature Rupture of membranes @ 34w5d. 2. Chronic Hypertension DISCHARGE DIAGNOSES: 1. @ 34w5d. 2. Retained placenta with curettage 3. hemorrhage, EBL 1000ml COMPLICATIONS/CHIEF COMPLAINT: LABOR. HISTORY OF PRESENT ILLNESS: 34yo FAVIOLA 10/18/2019. Arrived reporting leakage of fluid since 0300 09/09 with onset of stronger contractions morning of 09/11/2019. History is significant for chronic hypertension, drug abuse in remission. tobacco use. HOSPITAL COURSE: Following a of viable female child, she was found to have a retained placenta. Taken to OR by Dr Burgess for manual removal under anesthesia; curettage. She experienced a 1000ml blood loss . DISCHARGE MEDICATIONS: Please see below. ALLERGIES: Please see below. PHYSICAL EXAMINATION ON DISCHARGE: VITAL SIGNS: Please see below. Stable, normotensive, afebrile GENERAL: No distress HEENT: WNL NECK: Supple CARDIOVASCULAR EXAMINATION: HRR RESPIRATORY EXAMINATION: Clear and unlabored ABDOMINAL EXAMINATION: Fundus firm, nontender EXTREMITIES: Equal strength and motion SKIN: Intact NEUROLOGICAL EXAMINATION: Grossly intact PSYCHIATRIC EXAMINATION: Appropriate LABORATORY DATA: Please see below. PROGNOSIS: Good ACTIVITY: As tolerated. Pelvic rest. DIET: As tolerated DISCHARGE PLAN: Home today after CBC has resulted and voiding freely. DISPOSITION: Home . DISCHARGE INSTRUCTIONS: 1. Continue at home medications. Tylenol or ibuprofen as needed for discomfort. 2. Pelvic rest 3. Call office with fever, nausea, vomiting, chills, foul lochia or increased pain. Return to office 2 weeks and 6 weeks ITEMS TO FOLLOWUP ON ON OUTPATIENT: 1. CBC. DISCHARGE CONDITION: Stable. TIME SPENT ON DISCHARGE: Greater than 10 minutes. Vital Signs/I&Os Vital Signs Date Time Temp Pulse Resp B/P (MAP) Pulse Ox O2 Delivery O2 Flow Rate FiO2 09/12/19 06:00 99.1 73 18 125/61 (82) 09/11/19 22:00 99 Room Air I&O- Last 24 Hours up to 6 AM 09/12/19 06:00 Intake Total 890 ml Output Total 3375 ml Balance -2485 ml Laboratory Data Labs 24H Laboratory Tests 2 09/11/19 08:58: Serology Scanned Report Hepatitis B Testing 09/11/19 09:32: Nucleated Red Blood Cells % (auto) 0.0, Glomerular Filtration Rate > 60.0, Uric Acid 3.7, Total Bilirubin 0.2, Aspartate Amino Transf (AST/SGOT) 17, Alanine Aminotransferase (ALT/SGPT) 16, Lactate Dehydrogenase 187, Syphilis Serology NONREACTIVE 09/11/19 11:19: Urine Color YELLOW, Urine Appearance CLEAR, Urine pH 7.0, Urine Specific [place] 1.017, Urine Protein NEGATIVE, Urine Glucose (Auto)(UA) NEGATIVE, Urine Ketones (Auto) 1+H, Urine Blood 1+H, Urine Nitrite NEGATIVE, Urine Bilirubin NEGATIVE, Urine Urobilinogen 0.2, Urine Leukocyte Esterase (Auto) NEGATIVE, Urine WBC (Auto) 1, Urine RBC (Auto) 1, Urine Hyaline Casts (Auto) 0, Urine Bacteria (Auto) NEGATIVE, Urine Squamous Epithelial Cells 0, Urine Mucus (Auto) SMALL, Urine Sperm (Auto) , Urine Random Creatinine 53.9, Urine Random Total Protein 23.6H, Urine Opiates Screen NEGATIVE, Urine Methadone Screen NEGATIVE, Urine Barbiturates Screen NEGATIVE, Urine Phencyclidine Screen NEGATIVE, Urine Amphetamines Screen NEGATIVE, Urine Benzodiazepines Screen NEGATIVE, Urine Cocaine Metabolite Screen NEGATIVE, Urine Cannabinoids Screen PENDING CONFIRMATIONH 09/11/19 11:49: Cord Arterial Blood pH 7.391, Cord Arterial Blood PCO2 37.0, Cord Arterial Blood PO2 17.3, Cord Arterial Blood HCO3 21.9, Cord Arterial Blood Total CO2 23.1, Cord Arterial Blood Base Excess -2.5, Cord Arterial Base Excess (Standard 21.1, Cord Arterial Bld Oxygen Saturation 44.6, Cord Venous Blood pH 7.444, Cord Venous Blood PCO2 30.4, Cord Venous Blood PO2 25.0, Cord Venous Blood HCO3 20.4, Cord Venous Blood Total CO2 21.3, Cord Venous Base Excess (Actual) -2.5, Cord Venous Base Excess (Standard) 21.7, Cord Venous Blood Oxygen Saturation 70.8 CBC/BMP Laboratory Tests 09/11/19 09:32 Microbiology Microbiology 09/11/19 Group B Streptococcus Screen (FUNMI), Received Pending Discharge Medications Scheduled Buprenorphine HCl (Buprenorphine HCl) 8 Mg Tab.subl, 12 MG SL DAILY, (Reported) Docusate Sodium (Colace) 100 Mg Capsule, 1 CAP PO BID, (Reported) Fluoxetine HCl (Prozac) 40 Mg Capsule, 60 MG PO DAILY, (Reported) No.137/Iron/Folic Acd ( Vitamin Tablet) 1 Each Tablet, 1 TAB PO DAILY, (Reported) Scheduled PRN Acetaminophen (Tylenol) 500 Mg Tab, 1,000 MG PO Q4HP PRN for PAIN, (Reported) Ondansetron (Ondansetron Odt) 4 Mg Tab.rapdis, 1 TAB PO Q6-8HP PRN for nausea/vomiting Miscellaneous Medications Nifedipine (Nifedipine ER) 30 Mg Tab.er.24, (Reported) [Bupren/Nalox] , (Reported) Allergies Coded Allergies: codeine (Verified Allergy, Intermediate, eyes swell and scalp itches, 09/11/19) no signs of anaphylaxis per patient has taken morphine with no issues Susan Salazar CNM Sep 12, 2019 07:04
[2019-09-12 07:25] LABS: HEMATOCRIT 31.8 % (36.0-47.0); HEMOGLOBIN 10.3 g/dl (12.0-15.5); MEAN CORPUSCULAR HEMOGLOBIN 29.7 pg (27.0-33.0); MEAN CORPUSCULAR HGB CONC 32.4 g/dl (32.0-36.5); MEAN CORPUSCULAR VOLUME 91.6 fl (80.0-96.0); PLATELET COUNT, AUTOMATED 137 10^3/uL (150-450); RED BLOOD COUNT 3.47 10^6/uL (4.00-5.40); WHITE BLOOD COUNT 27.5 10^3/uL (4.0-10.0)
[2019-09-12] MEDS ORDERED: BUPRENORPHINE/NALOXONE 8-2MG SUBLINGUAL TABLET(SUBOXONE) SL SCH ×2 (09:00)
[2019-09-12] MEDS ORDERED: PRENATAL VITAMINS CHEWABLE TABLET PO SCH (09:00)
[2019-09-12] MEDS ORDERED: FLUoxetine 20 MG CAP PO SCH (09:00)
[2019-09-12] MEDS ORDERED: lamoTRIgine 100MG TAB PO SCH (09:00)
--- NOTE | 2019-09-12 09:26 | ROOPDOC ---
[facility] Report Of Operation Report of Operation DATE OF PROCEDURE: 09/11/19 PREPROCEDURE DIAGNOSES: Retained placenta. POSTPROCEDURE DIAGNOSES:. 1. Retained placenta. 2. hemorrhage. PROCEDURE: 1.Manual extraction of placenta. 2. curettage. SURGEON: Leilani Burgess MD ANESTHESIA: Laryngeal mask airway. ESTIMATED BLOOD LOSS: Approximately 1000 mL. URINE OUTPUT: 200ml INTRAVENOUS FLUIDS: 1700 amounts of lactated Ringer's solution COMPLICATIONS:. hemorrhage. SPECIMEN: Placenta PREOPERATIVE ANTIBIOTICS: 2 g of Ancef INDICATION OF OPERATION: This patient is 34-year-old para 4 who just delivered delivery at delivery of the fetus. There was a retained placenta that was suspected after an hour after delivery. I was notified at which point it was determined that she'll need a manual extraction of her placenta and she did not have adequate pain control. Decision was made to proceed with the manual extraction of placenta, possible curettage the operating room. DESCRIPTION OF PROCEDURE: Informed consent was obtained and written consent was reviewed. The patient brought to the operating room. She was placed under general anesthesia. She was then prepped and draped in normal sterile fashion. A timeout operating room was performed identifying the patient, procedure be performed as well as drug allergies. Manual extraction was then performed, removing the placenta intact. A sharp curet was advanced through the cervix with minimal creatinine performed just removing small amounts of clots and tissue. Upon delivery of the placenta, there was a large amount of bleeding. Patient received thousand micrograms of misoprostol 0.2 mg of Methergine as well as 250 of Hemabate. She was also bolus Pitocin for hemostasis. Bleeding was controlled. She was then taken out of lithotomy position, was awakened from anesthesia, francia en to recovery in stable condition. Counts correct. LEILANI BURGESS MD. Sep 12, 2019 09:26
[2019-09-12] MEDS ORDERED: PILL CUTTER 1 EACH XX PRN (09:30)
[2019-09-12] MEDS: FLUoxetine 20 MG CAP PO SCH (09:51)
[2019-09-12 09:52] VITALS: BP 132/65
[2019-09-12] MEDS: NIFEdipine 30 MG XL TAB PO SCH (09:52)
[2019-09-12 10:00] VITALS: BP 132/65
[2019-09-16 02:07] LABS: Cannabinoid Positive (.); GC Carboxy THC 334 ng/mL (Cutoff=10)
== END 2019-09-12 13:15 | disposition home or self-care (01) | DRG 541 ==
LOC: M LDO 07:45 → M LDI 08:47 → M OBS 16:20
PROVIDERS: ADMIT Advanced Practice Midwife; ATTEND Advanced Practice Midwife
PROC: 10D17Z9 Manual Extraction of Products of Conception, Retained, Via Natural or Artificial Opening (ICD-10-PCS; 2019-09-11)
PROC: 10E0XZZ Delivery of Products of Conception, External Approach (ICD-10-PCS; principal; 2019-09-11 12:52)
DX: O42.013 Preterm premature rupture of membranes, onset of labor within 24 hours of rupture, third trimester (principal); O10.02 Pre-existing essential hypertension complicating childbirth; O72.0 Third-stage hemorrhage; Z3A.34 34 weeks gestation of pregnancy; O99.334 Smoking (tobacco) complicating childbirth; F17.210 Nicotine dependence, cigarettes, uncomplicated; O99.344 Other mental disorders complicating childbirth; F41.9 Anxiety disorder, unspecified; F32.9 Major depressive disorder, single episode, unspecified; Z37.0 Single live birth

== ENCOUNTER 2020-03-09 21:47 | Emergency (ER) | payer OTHER ==
[~2020-03-09] VITALS: Ht 165.1 cm; Wt 68.1 kg
[~2020-03-09 21:47] MED LIST changes: +BUPR8SUB SL; +COLA100C5 PO; -GABA-282; +GABA-843; +PROZ40CA PO
[2020-03-09] MEDS ORDERED: LAMO100T3 (22:00)
[2020-03-09 22:52] LABS: HEMATOCRIT 36.1 % (36.0-47.0); HEMOGLOBIN 11.7 g/dl (12.0-15.5); MEAN CORPUSCULAR HEMOGLOBIN 28.3 pg (27.0-33.0); MEAN CORPUSCULAR HGB CONC 32.4 g/dl (32.0-36.5); MEAN CORPUSCULAR VOLUME 87.2 fl (80.0-96.0); PLATELET COUNT, AUTOMATED 206 10^3/uL (150-450); RED BLOOD COUNT 4.14 10^6/uL (4.00-5.40); WHITE BLOOD COUNT 9.7 10^3/uL (4.0-10.0)
--- NOTE | 2020-03-10 00:22 | REPVR ---
PROCEDURE INFORMATION: Exam: US First Trimester, Transabdominal Exam date and time: 03/10/2020 12:01 AM Age: 35 years old Clinical indication: Lmp or gestational age (in weeks): 7; Antepartum complications; Bleeding; ; Additional info: Vag bleeding, >2000 hcg TECHNIQUE: Imaging protocol: Real-time transabdominal obstetrical ultrasound of the maternal pelvis and a first trimester , less than 14 weeks 0 days, with image documentation. COMPARISON: No relevant prior studies available. FINDINGS: Gestation: Gestational sac within the uterus with pole and yolk sac. Embryonic/ heart rate: heartbeat of 150 bpm. Placenta: Unremarkable. No subchorionic bleed. Amniotic fluid: Amniotic fluid is normal for gestational age. BIOMETRY: [place]-Rump length: [place]-rump length is 13 mm suggesting an age of 7 weeks 4 days. The EDC is 10/22/2020. MATERNAL: Uterus: The uterus measures 9.2 cm in its cephalocaudad dimension and 4.7 x 6.0 cm in its AP and lateral dimensions. Right adnexa: Right ovarian cyst measuring 18 x 18 x 16 mm. Left adnexa: Not seen. Intraperitoneal space: No intraperitoneal free fluid. IMPRESSION: 1. Single live intrauterine gestation with an estimated age of 7 weeks 4 days. The EDC is 10/22/2020. 2. Right ovarian cyst measuring 18 x 18 x 16 mm. Electronically signed by: Jason Stallworth On 03/10/2020 00:22:56 AM
[2020-03-10 01:05] VITALS: BP 125/70
[2020-03-10] MEDS ORDERED: MIRA3350 PO (01:05)
[2020-03-10] MEDS ORDERED: ONDA4TAB6 PO (01:07)
[2020-03-10] MEDS ORDERED: MIRALAX *UNIT DOSE* 17GM PACKET PO STA (01:07)
[2020-03-10] MEDS ORDERED: ONDANSETRON 4 MG ORAL DISINTEGRATING TAB PO ONE (01:15)
== END 2020-03-10 01:06 | disposition home or self-care (01) ==
LOC: M ED 21:47
DX: O26.851 Spotting complicating pregnancy, first trimester (principal); O34.81 Maternal care for other abnormalities of pelvic organs, first trimester; N83.201 Unspecified ovarian cyst, right side; Z3A.01 Less than 8 weeks gestation of pregnancy; O99.341 Other mental disorders complicating pregnancy, first trimester; F41.9 Anxiety disorder, unspecified; F33.9 Major depressive disorder, recurrent, unspecified; O99.331 Smoking (tobacco) complicating pregnancy, first trimester; F17.210 Nicotine dependence, cigarettes, uncomplicated; Z79.899 Other long term (current) drug therapy; Z98.890 Other specified postprocedural states; Z88.5 Allergy status to narcotic agent
CPT/HCPCS: 36415; 76801; 81001; 84702; 85027; 86901; 99283; Q0162

== ENCOUNTER → 2020-04-19 | Outpatient (REF) | payer OTHER ==
[~2020-04-19] MED LIST changes: +GABA-282; -GABA-843; +MIRA3350 PO
[2020-04-19 14:25] LABS: HEMOGLOBIN 12.1 g/dl (12.0-15.5); MEAN CORPUSCULAR HEMOGLOBIN 28.7 pg (27.0-33.0); MEAN CORPUSCULAR HGB CONC 32.7 g/dl (32.0-36.5); MEAN CORPUSCULAR VOLUME 87.9 fl (80.0-96.0); PLATELET COUNT, AUTOMATED 185 10^3/uL (150-450); RED BLOOD COUNT 4.21 10^6/uL (4.00-5.40); WHITE BLOOD COUNT 7.5 10^3/uL (4.0-10.0)
[2020-04-19 14:52] LABS: TOTAL PROTEIN,RANDOM URINE 14.1 MG/DL (0.0-12.0)
[2020-04-19 14:53] LABS: ALT/SGPT 29 U/L (12-78); BILIRUBIN,TOTAL 0.1 MG/DL (0.2-1.0); CREATININE FOR GFR 0.56 MG/DL (0.55-1.30); GLOMERULAR FILTRATION RATE > 60.0 (>60); LDH LACTATE DEHYDROGENASE 162 U/L (84-246); URIC ACID 2.2 MG/DL (2.6-6.0)
[2020-04-19 15:45] LABS: HEPATITIS C VIRUS ABY INDEX < 0.0 INDEX (<0.8); HIV 1&2 SCREEN CENTAUR NEGATIVE (NEGATIVE)
[2020-04-19 16:05] LABS: CHLAMYDIA DNA AMPLIFICATION NEGATIVE (NEGATIVE); GC DNA AMPLIFICATION NEGATIVE (NEGATIVE)
== END ==
LOC: M PLALAB 10:57
PROVIDERS: ATTEND Advanced Practice Midwife
DX: O09.522 Supervision of elderly multigravida, second trimester (principal); Z3A.13 13 weeks gestation of pregnancy

== ENCOUNTER → 2020-05-05 | Outpatient (REF) | payer OTHER | LOC: M SFHCWAGY 17:11 | PROVIDERS: ATTEND Advanced Practice Midwife | DX: Z12.4 Encounter for screening for malignant neoplasm of cervix (principal); N76.0 Acute vaginitis ==

== ENCOUNTER → 2020-06-16 | Outpatient (CLI) | payer OTHER ==
--- NOTE | 2020-06-16 11:46 | REP ---
INDICATION: ANATOMY. COMPARISON: 03/09/2020 TECHNIQUE: Second trimester anatomy ultrasound protocol followed. FINDINGS: Scanning demonstrates a viable single intrauterine gestation in a variable lie. motion is observed and heart rate is recorded at 136 beats per minute. An posterior, grade 0 placenta is seen without evidence of previa. Cord insertion: Mid insertion. Amniotic fluid is subjectively normal. Closed cervical length is measured at 3.2 cm transabdominally. No extrauterine abnormality is observed. There has been appropriate interval growth. No anomaly is seen. The following anatomic structures are identified and felt to be sonographically unremarkable: cranium, lateral ventricles, choroid plexus, thalami, cavum, cerebellum and posterior fossa, face and profile, nuchal fold, lungs, four-chamber heart with left and right ventricular outflow tract views, diaphragm, left-sided stomach, abdominal wall cord insertion, three-vessel umbilical cord, kidneys and bladder, spine, and upper and lower extremities. Biometry chart: BPD 5.3 cm; 22 weeks 0 days Head circumference 19.1 cm; 21 weeks 3 days Abdominal circumference 16.7 cm; 21 weeks 5 days Femur length 3.7 cm; 21 weeks 4 days Humeral length 3.4 cm; 21 weeks 3 days HC/AC ratio normal 1.15 Cephalic index normal 0.78 Estimated weight 440 grams, 0 pounds 15 ounces, 43rd percentile for 21 weeks 5 days. IMPRESSION: Viable single intrauterine gestation at 21 weeks 4 days by today's composite sonographic criteria. Expected gestational age estimate based on prior sonography is 21 weeks is 5 days. FAVIOLA by prior sonography 10/22/2020. No anomaly. <Electronically signed by Luisito Mendes > 06/16/20 [id number]
== END ==
LOC: M WHC 10:35
PROVIDERS: ATTEND Advanced Practice Midwife
DX: Z34.92 Encounter for supervision of normal pregnancy, unspecified, second trimester (principal); Z3A.22 22 weeks gestation of pregnancy

== ENCOUNTER → 2020-08-16 | Outpatient (REF) | payer OTHER ==
[2020-08-16 18:48] LABS: HEMATOCRIT 35.3 % (36.0-47.0); HEMOGLOBIN 11.4 g/dl (12.0-15.5); MEAN CORPUSCULAR HEMOGLOBIN 28.9 pg (27.0-33.0); MEAN CORPUSCULAR HGB CONC 32.3 g/dl (32.0-36.5); MEAN CORPUSCULAR VOLUME 89.4 fl (80.0-96.0); PLATELET COUNT, AUTOMATED 152 10^3/uL (150-450); RED BLOOD COUNT 3.95 10^6/uL (4.00-5.40); WHITE BLOOD COUNT 11.6 10^3/uL (4.0-10.0)
== END ==
LOC: M PLALAB 14:10
PROVIDERS: ATTEND Advanced Practice Midwife
DX: Z34.83 Encounter for supervision of other normal pregnancy, third trimester (principal)

== ENCOUNTER → 2020-09-21 | Outpatient (REF) | payer OTHER | LOC: M SFHCWAGY 16:47 | PROVIDERS: ATTEND Advanced Practice Midwife | DX: Z36.89 Encounter for other specified antenatal screening (principal); Z3A.35 35 weeks gestation of pregnancy ==

== ENCOUNTER → 2020-09-29 | Outpatient (CLI) | payer OTHER ==
[2020-09-29 17:31] LABS: FREE T4 0.85 NG/DL (0.76-1.46); THYROID STIMULATING HORMONE 1.39 uIU/ML (0.358-3.740)
== END ==
LOC: M PLALAB 14:56
PROVIDERS: ATTEND Advanced Practice Midwife
DX: R53.83 Other fatigue (principal)

== ENCOUNTER → 2020-09-29 | Outpatient (CLI) | payer OTHER ==
[2020-09-29 17:25] LABS: ALBUMIN 3.1 GM/DL (3.2-5.2); ALT/SGPT 23 U/L (12-78); BILIRUBIN,DIRECT < 0.1 MG/DL (0.0-0.2); BILIRUBIN,TOTAL 0.2 MG/DL (0.2-1.0); TOTAL PROTEIN 6.7 GM/DL (6.4-8.2)
== END ==
LOC: M PLALAB 14:59
PROVIDERS: ATTEND Family Medicine
DX: F11.11 Opioid abuse, in remission (principal)

== ENCOUNTER 2020-10-09 22:47 | Inpatient (IN) | payer OTHER ==
[~2020-10-09] VITALS: Ht 165.1 cm; Wt 79.8 kg
[2020-10-09 23:06] VITALS: BP 138/90
[2020-10-10] VITALS (16 sets, daily range): BP systolic 119–171; BP diastolic 64–94
[2020-10-10] MEDS ORDERED: ACET-897 PO (00:16)
[2020-10-10] MEDS ORDERED: PRENTAB9 PO (00:16)
[2020-10-10] MEDS ORDERED: PERCOCET 5MG/325MG TAB PO ONE (02:30)
[2020-10-10] MEDS ORDERED: ONDANSETRON 4 MG ORAL DISINTEGRATING TAB SL SCH (06:00)
[2020-10-10] MEDS ORDERED: PILL CUTTER 1 EACH XX PRN (08:45)
[2020-10-10] MEDS: lamoTRIgine 100MG TAB PO SCH ×2 (09:16→21:39)
[2020-10-10] MEDS: FLUoxetine 20 MG CAP PO SCH (09:17)
[2020-10-10] MEDS: BUPRENORPHINE HCL 8MG SUBINGUAL TABLET SL SCH (09:19)
[2020-10-10] MEDS ORDERED: ONDANSETRON 4 MG ORAL DISINTEGRATING TAB PO PRN (09:40)
[2020-10-10] MEDS ORDERED: LACTATED RINGER'S 1000 ML IV STA (10:42)
[2020-10-10] MEDS ORDERED: LIDOCAINE 1% MDV 20ML VIAL INFIL PRN (10:45)
[2020-10-10] MEDS ORDERED: CARBOPROST TROMETHAMINE 250 MCG/ML AMP IM PRN (10:45)
[2020-10-10] MEDS ORDERED: TRANEXAMIC ACID INJection 1,000 MG in NS 100 ML IV PRN (10:45)
[2020-10-10] MEDS ORDERED: OXYTOCIN DRIP 30 UNITS in IV 1 EA IV PRN (10:45)
[2020-10-10] MEDS ORDERED: HOME MED LIST COMPLETE! XX SCH (11:20)
--- NOTE | 2020-10-10 13:04 | HPEPDOC ---
Obstetrical History & Physical General Date of Admission Oct 10, 2020 at 10:08 Primary Care Physician: GARRISON MARTIN CNM History of Present Illness Eusebia is a 35 year-old female who is a at 38.3 weeks gestation with an FAVIOLA of 10/22/20 based off of her 1st trimester ultrasound. She initiated care in her first trimester with [facility] although she had a visit at [facility] in [place] and seen in [place] for bleeding where her first trimester ultrasound was done. Her has been complicated by a history of drug abuse, which she has been taking Subutex for. She takes 12 mg daily. She is also a smoker, advanced maternal age, has a history of a delivery at 34.5 weeks gestation, and chronic hypertension. She has not been taking anything for her BP when she initiated care for her but was on Nifedipine. She reports she ran out of her medication and just stopped taking it. This she has been n ormotensive up until last night. She also has bipolar, depression and anxiety, which she is taking Prozac and Lamictal for. She presented last night to L&D with intense left sided back pain that ran down her side, butt, and leg. She was given a Percocet by Dr. Mora and he examined her last night and she was FT to1 cm, 50% effaced and -3 station. She had multiple elevated BPs throughout the night and this morning. She reports some contractions. Denies any preeclamptic symptoms. She reports active movement. Denies leaking of fluid or vaginal bleeding. Chief Complaint: Other (chronic hypertension and early labor) Age: 35 : 5 Term: 3 Pre-term: 1 Abortions: 0 Livin Care Care: Good Care Dating Final EDC: Oct 22, 2020 Final EDC by: 1st trimester (US) EGA at Admission: 38.3 Antepartum Course Diagnos(e)s History of delivery at 34.5 weeks AMA Chronic hypertension-no medications (previously on Nifedipine) Hx of drug use (opiates) and taking Subutex 12 mg daily-clean for 5 years Multiple psychiatric diagnosis-taking Prozac and Lamictal smoker Height (inches): 65 Admission Weight (lbs.): 176 Past Medical History Past Obstetrical History #1: Past Obstetrical History: Primgravida Date of Delivery: August 12, 2004 Gestation: 40 Type of Delivery: Spontaneous Vaginal Del. Sex of : Female (7 lbs 11 oz) Complications: No Past Obstetrical History #2: Past Obstetrical History: Multigravida Date of Delivery: August 04, 2007 Gestation: 40 Type of Delivery: Spontaneous Vaginal Del. Sex of Infant: Female (weight 5 lbs 6 oz) Complications: No Past Obstetrical History #3: Past Obstetrical History: Multigravida Date of Delivery: May 04, 2013 Gestation: 39.4 Type of Delivery: Spontaneous Vaginal Del. Sex of : Male (7 lbs 12 oz) Complications: No Past Obstetrical History #4: Past Obstetrical History: Multigravida Date of Delivery: Sep 11, 2019 Gestation: 34.5 Type of Delivery: Spontaneous Vaginal Del. Sex of : Female (4 lbs 8 oz ) Complications: Yes (PROM with retained placenta (removed in OR)) [employer] History: Abnormal Pap, Human papillomavirus(HPV) Past Medical History Medical History HTN Surgical History: Appendectomy, Gallbladder, Other (LEEP and hand surgery) Family History Significant Family History: Diabetes, Hypertension, Other (stroke and leukemia) Social History Marital Status: Single Family situation: Spouse/partner home Psychosocial History: Anxiety, Bipolar, Depression * Smoker: current smoker Alcohol: Denies Drugs: marijuana, other (history of opiate abuse and currently taking Subutex 12 mg dialy) Allergies Coded Allergies: codeine (Verified Allergy, Intermediate, eyes swell and scalp itches, 10/09/20) no signs of anaphylaxis per patient has taken morphine with no issues Medications Scheduled Buprenorphine HCl (Buprenorphine HCl) 8 Mg Tab.subl, 12 MG SL DAILY Fluoxetine HCl (Prozac) 40 Mg Capsule, 60 MG PO DAILY No.137/Iron/Folic Acd ( Vitamin Tablet) 1 Each Tablet, 1 TAB PO DAILY Scheduled PRN Ondansetron (Ondansetron Odt) 4 Mg Tab.rapdis, 4 MG PO Q6-8HP PRN for nausea/v omiting Miscellaneous Medications Acetaminophen (Tylenol Extra Strength) 500 Mg Tablet, 500 MG PO Lamotrigine (Lamotrigine) 100 Mg Tablet Physical Examination Physical Examination GENERAL: Alert and oriented times three. BREAST: . ABDOMEN: Gravid and non-tender to touch. FETUS: Is vertex (VTX) by sterile vaginal examination (SVE), fetus is vertex (VTX) by Carlos. LUNGS: Clear to auscultation (CTA). EXTREMITIES: Generalized edema. No clonus. Deep tendon reflexes (DTRs) + 2. Vital Signs/I&O Vital Signs Date Time Temp Pulse Resp B/P (MAP) Pulse Ox O2 Delivery O2 Flow Rate FiO2 10/10/20 05:53 58 154/81 (105) 10/10/20 03:31 97.6 10/10/20 03:08 18 Room Air Laboratory Data 24H LABS Laboratory Tests 2 10/10/20 10:17: Serology Scanned Report Hepatitis B Testing Pertinent Laboratoy Data Blood Type: A+ RBC Antibody Screen: Negative HIV: Negative Hepatitis B: Negative Hepatitis C: Negative Rapid Plasma Reagin: Nonreactive Rubella: Immune Chlamydia/Gonorrhea: Negative Group B Streptococcus: Negative Glucose Tolerance Test: 77 Diag/Inter Therapy Panorama NIPT low risk normal female Anatomy Ultrasound Ultrasound Date: Jun 16, 2020 Placenta Location: Posterior Normal Anatomy: Yes Placenta Previa: No Vaginal Examination Dilation: 3 cm Effacement: 80% Station: -1 Cervical Consistency: Soft Cervical Position: Anterior Presentation: Cephalic presentation Assessment Heart Rate (FHR): 115 Variability: Moderate Accelerations: Positive Decelerations: None Tocometer Contractions: Yes Frequency: irregular Assessment/Plan Assessment IUP at 38.3 weeks gestation CHTN early labor AMA Hx of opiate abuse currently taking Subutex 12 mg daily GBS negative Category I FHR tracing Plan Admit to L&D. Reviewed cervical change and elevated BPs that we could admit her. Dr. Serrano aware of patient being in department and plan collaborated with him. OOB ad christie. Diet: regular now then clears once IV Pitocin is started. Group B Streptococcus (GBS) negative. Labs and intravenous (IV) per unit protocol. Anesthesia per patient's request. Counseled on Pitocin for augmentation of labor (IOL). Lactated Ringers (LR): Bolus 800 mL prior to epidural, then at 125 mL/hr. Anticipate cervical change and . C-S as appropriate. GARRISON MARTIN CNM Oct 10, 2020 13:04
[2020-10-10 13:15] LABS: HEMATOCRIT 38.5 % (36.0-47.0); HEMOGLOBIN 12.9 g/dl (12.0-15.5); MEAN CORPUSCULAR HEMOGLOBIN 29.8 pg (27.0-33.0); MEAN CORPUSCULAR HGB CONC 33.5 g/dl (32.0-36.5); MEAN CORPUSCULAR VOLUME 88.9 fl (80.0-96.0); PLATELET COUNT, AUTOMATED 125 10^3/uL (150-450); RED BLOOD COUNT 4.33 10^6/uL (4.00-5.40); WHITE BLOOD COUNT 11.2 10^3/uL (4.0-10.0)
[2020-10-10] MEDS ORDERED: OXYTOCIN DRIP 30 UNITS in IV 1 EA IV SCH (13:15)
[2020-10-10] MEDS: ONDANSETRON 4MG/2ML VIAL IV PRN ×2 (13:25→23:58)
[2020-10-10 15:20] LABS: CREATININE,RANDOM URINE 60.2 MG/DL; TOTAL PROTEIN,RANDOM URINE 12.9 MG/DL (0.0-12.0)
[2020-10-10] MEDS: LR 1,000 ML IV SCH ×2 (17:50→22:41)
[2020-10-10] MEDS ORDERED: ACETAMINOPHEN 500 MG TAB PO PRN (19:35)
[2020-10-10 23:30] LABS: HEMATOCRIT 34.2 % (36.0-47.0); HEMOGLOBIN 11.3 g/dl (12.0-15.5); MEAN CORPUSCULAR HEMOGLOBIN 29.3 pg (27.0-33.0); MEAN CORPUSCULAR VOLUME 88.6 fl (80.0-96.0); PLATELET COUNT, AUTOMATED 112 10^3/uL (150-450); RED BLOOD COUNT 3.86 10^6/uL (4.00-5.40); WHITE BLOOD COUNT 9.7 10^3/uL (4.0-10.0)
[2020-10-11] VITALS (39 sets, daily range): BP systolic 99–204; BP diastolic 56–97
[2020-10-11] MEDS ORDERED: FENTANYL 2MCG/ML ROPIVACAINE 0.2% IN 0.9% NACL 100ML IVBAG As Ordered ONE (00:09)
[2020-10-11] MEDS ORDERED: EPIDURAL/PCA KEYS XX PRN (01:05)
[2020-10-11] MEDS ORDERED: ONDANSETRON 4MG/2ML VIAL IV PRN (01:05)
[2020-10-11] MEDS ORDERED: diphenhydrAMINE 50MG/ML VIAL (J1200) IV PRN (01:05)
[2020-10-11] MEDS ORDERED: EPIDURAL COMMENT XX SCH (01:05)
[2020-10-11] MEDS ORDERED: NALOXONE INJ 0.4MG/1ML VIAL (J2310 PER 1MG) IV PRN (01:05)
[2020-10-11] MEDS ORDERED: ePHEDrine SULFATE 25 MG/5 ML(5MG/ML) SYRINGE IV PRN (01:05)
[2020-10-11] MEDS ORDERED: REFRIGERATOR IV KEYS XX PRN (01:05)
[2020-10-11] MEDS ORDERED: LACTATED RINGER'S 1000 ML IV PRN (01:05)
--- NOTE | 2020-10-11 01:09 | IPNPDOC ---
Obstetrical Progress Note Date of Service Oct 11, 2020 Subjective Patient reports she is comfortable with her epidural. Objective Vital Signs Date Time Temp Pulse Resp B/P (MAP) Pulse Ox O2 Delivery O2 Flow Rate FiO2 10/11/20 00:32 71 16 175/97 (123) 10/10/20 21:13 98.6 10/10/20 03:08 Room Air Assessment Heart Rate (FHR): 120 Variability: Moderate Accelerations: Positive Decelerations: None Heart Rate Tracing: Category I Tocometer Contractions: Yes Frequency: irregular Sterile Vaginal Examination Dilation: 3 cm Effacement (%): 80% Station: -1 Cervical Consistency: Soft Postion/Presentation: Cephalic presentation Assessment and Plan Age: 35 Weeks & Days 38.4 weeks Status: Reassuring Group B Streptococcus: Negative Anticipate: Vaginal Delivery Additional Comments IV Pitocin to be started per order. Denies preeclamptic symptoms. CBC repeated for thrombocytopenia GARRISON MARTIN CNM Oct 11, 2020 01:09
[2020-10-11] MEDS: FENTANYL/ROPIVACAINE/NACL BAG 100 ML EPIDURAL SCH ×2 (03:27→10:01)
--- NOTE | 2020-10-11 05:30 | IPNPDOC ---
Obstetrical Progress Note Date of Service Oct 11, 2020 Subjective Comfortable with epidural. Objective Vital Signs Date Time Temp Pulse Resp B/P (MAP) Pulse Ox O2 Delivery O2 Flow Rate FiO2 10/11/20 04:49 97.9 88 16 113/56 (75) 10/10/20 03:08 Room Air Assessment Heart Rate (FHR): 120 Variability: Moderate Accelerations: Positive Heart Rate Tracing: Category I Tocometer Contractions: Yes Frequency: regular, every 1-3 min. Sterile Vaginal Examination Dilation: 4 cm Effacement (%): 80% Station: -1 Cervical Consistency: Soft Cervical Position: Anterior Postion/Presentation: Cephalic presentation Assessment and Plan Age: 35 Status: Reassuring Group B Streptococcus: Negative Anticipate: Vaginal Delivery Additional Comments IV Pitocin at 12 units of IV Pitocin. AROM to a scant amount of clear fluid. GARRISON MARTIN CNM Oct 11, 2020 05:30
[2020-10-11] MEDS: LR 1,000 ML IV SCH ×3 (06:16→19:44)
[2020-10-11] MEDS: lamoTRIgine 100MG TAB PO SCH ×2 (08:55→20:47)
[2020-10-11] MEDS: BUPRENORPHINE HCL 8MG SUBINGUAL TABLET SL SCH (08:55)
[2020-10-11] MEDS: FLUoxetine 20 MG CAP PO SCH (09:54)
[2020-10-11] MEDS ORDERED: ACETAMINOPHEN TAB 650MG DOSE (2X325MG) PO PRN (11:05)
[2020-10-11] MEDS ORDERED: MEASLES,MUMPS,RUBELLA VACCINE INJ (MMR-II) (90707) SC SCH (11:05)
[2020-10-11] MEDS ORDERED: DIBUCAINE 1% OINTMENT 30GM TOP PRN (11:05)
[2020-10-11] MEDS ORDERED: DOCUSATE SODIUM 100MG CAPSULE PO PRN (11:05)
[2020-10-11] MEDS ORDERED: IBUPROFEN 600MG TAB PO PRN (11:05)
[2020-10-11] MEDS ORDERED: RHOGAM 300 MCG (1500 IU) INJ (J2790) IM SCH (11:05)
[2020-10-11] MEDS ORDERED: OXYTOCIN DRIP 30 UNITS in IV 1 EA IV SCH (11:05)
--- NOTE | 2020-10-11 11:10 | DNPDOC ---
[facility] Delivery Note Delivery Note DATE OF DELIVERY: 10/11/2020 TIME OF DELIVERY: 1052 Spontaneous vaginal delivery. SENIOR MARKET RESEARCH ANALYST: Dr. Alfred Serrano DO FACOG ANESTHESIA: Epidural LACERATION: None ESTIMATED BLOOD LOSS: 200 mL. FINDINGS: 5 pound 10 ounce (2540g) female infant, Score 8 and 9. DELIVERY SUMMARY: The active phase and second stage of labor progressed in normal fashion. She received Pitocin augmentation throughout her labor course]. The head delivered in the BRIJESH position, and restituted LOT. No nuchal cord was noted. The anterior shoulder delivered with gentle downward guidance and the remainder of the body delivered with ease. The baby was placed on the patient's chest. Delayed cord clamping occurred for approximately 1 minute. The cord was then doubly clamped and cut. IV Pitocin was bolused to actively manage the third stage of labor. The placenta delivered intact without any difficulty within 10 minutes of delivery. The uterine fundus was noted to be firm and 2 cm below the umbilicus. The cervix, vagina, vulva and perineum were inspected. Patient was free of any lacerations. Excellent hemostasis was noted. Sponge, needle and instrument counts were correct per protocol. DO KALA Eastman JONATHAN R. DO Oct 11, 2020 11:10
[2020-10-11] MEDS ORDERED: OXYTOCIN DRIP 30 UNITS in IV 1 EA IV ONE (11:25)
[2020-10-11] MEDS: IBUPROFEN 800 MG TAB PO PRN ×2 (11:51→19:51)
[2020-10-11] MEDS: ACETAMINOPHEN 500 MG TAB PO PRN ×2 (12:24→20:31)
[2020-10-11] MEDS ORDERED: PERCOCET 5MG/325MG TAB PO ONE (15:00)
[2020-10-12] MEDS: IBUPROFEN 800 MG TAB PO PRN ×2 (05:14→17:01)
[2020-10-12 06:00] VITALS: BP 143/73
--- NOTE | 2020-10-12 07:49 | IPNPDOC ---
Progress Note Date of Service: Oct 12, 2020 Day#: 1 Progress Note PPD#1 S/p , uncomplicated Pain well controlled, voiding spontaneously, tolerating regular diet, lochia decreasing/minimal, ambulating without difficulty. Denies f/c/n/v/sob/cp. VSS,af Abd: soft,nt,nd Ext: no c/c/e A/P: PPD#1. Recovering well. HDS/af. -Anticipate d/c tomorrow. -Routine care. Aidan Serrano DO VS, I&O, 24H, Fishbone Vital Signs/I&O Vital Signs Date Time Temp Pulse Resp B/P (MAP) Pulse Ox O2 Delivery O2 Flow Rate FiO2 10/12/20 06:00 97.6 56 16 143/73 (96) 100 Room Air I&O- Last 24 Hours up to 6 AM 10/12/20 06:00 Intake Total 3409 ml Output Total 1000 ml Balance 2409 ml JUSTIN SERRANO DO Oct 12, 2020 07:49
[2020-10-12] MEDS: FLUoxetine 20 MG CAP PO SCH (08:31)
[2020-10-12] MEDS: lamoTRIgine 100MG TAB PO SCH ×2 (08:31→20:48)
[2020-10-12] MEDS: BUPRENORPHINE HCL 8MG SUBINGUAL TABLET SL SCH (08:31)
[2020-10-12] MEDS: PRENATAL VITAMINS CHEWABLE TABLET PO SCH (08:31)
[2020-10-12] MEDS: ACETAMINOPHEN 500 MG TAB PO PRN ×2 (08:32→20:48)
[2020-10-12 18:50] VITALS: BP 158/92
[2020-10-12 22:00] VITALS: BP 146/82
[2020-10-13] MEDS: IBUPROFEN 800 MG TAB PO PRN (01:27)
[2020-10-13 02:00] VITALS: BP 128/62
[2020-10-13] MEDS: ACETAMINOPHEN 500 MG TAB PO PRN (05:18)
[2020-10-13 06:00] VITALS: BP 130/68
[2020-10-13] MEDS: BUPRENORPHINE HCL 8MG SUBINGUAL TABLET SL SCH (08:09)
[2020-10-13] MEDS: FLUoxetine 20 MG CAP PO SCH (08:09)
[2020-10-13] MEDS: PRENATAL VITAMINS CHEWABLE TABLET PO SCH (08:09)
[2020-10-13] MEDS: lamoTRIgine 100MG TAB PO SCH (08:09)
== END 2020-10-13 13:17 | disposition home or self-care (01) | DRG 560 ==
LOC: M LDO 22:47 → M LDI 10-10 10:08 → M OBS 10-11 13:57
PROVIDERS: ADMIT Advanced Practice Midwife; ATTEND Obstetrics & Gynecology
PROC: 10E0XZZ Delivery of Products of Conception, External Approach (ICD-10-PCS; principal; 2020-10-11)
PROC: 10907ZC Drainage of Amniotic Fluid, Therapeutic from Products of Conception, Via Natural or Artificial Opening (ICD-10-PCS; 2020-10-11)
DX: O10.02 Pre-existing essential hypertension complicating childbirth (principal); Z3A.38 38 weeks gestation of pregnancy; Z37.0 Single live birth

== ENCOUNTER → 2021-01-13 | Outpatient (CLI) | payer OTHER ==
[~2021-01-13] MED LIST changes: +ACET-897 PO; +IBUP-1022 PO; +LAMO100T3 PO
== END ==
LOC: M LABSMTC 10:45
PROVIDERS: ATTEND Anesthesiology
DX: Z01.812 Encounter for preprocedural laboratory examination (principal); Z20.822 Contact with and (suspected) exposure to COVID-19

== ENCOUNTER 2021-01-18 08:51 | Day surgery (SDC) | payer OTHER ==
[~2021-01-18] VITALS: Ht 165.1 cm; Wt 72.6 kg
[~2021-01-18 08:51] MED LIST changes: +LIDOCAINE 1% MDV 20ML VIAL SQ PRN; +LR 1,000 ML IV ONE
--- OUTSIDE RECORDS SUMMARY | 2021-01-18 08:54 | CCD ---
Author Author [facility] Organization [facility] Address Unknown Phone Unavailable Care Team Providers Care Adult Live In Caregiver Name Role Phone Leilani Burgess Unavailable PROBLEMS Type Condition ICD9-CM Code [id number] Code Onset Dates Condition S tatus W/U Status Risk SNOMED Code Notes Problem Supervision of other normal Z34.80 Ac tive confirm 548620461 Problem Chronic hypertension affecting O10.919 Active confirmed 51672192 Problem Raynauds phenomenon without gangrene I73.00 Act fadi confirmed 172384697 Problem Pre-existing hypertension affecting in third trimester O10.913 Active confirmed 680035443 Problem Pre-existing hypertension in third trimester, antepartum O10.913 Active confirmed [id number] ALLERGIES No Known Allergies ENCOUNTERS from 1983 to 2021-01-11 Encounter Location Date Provider Diagnosis [facility] [address] [phone] [place] [address] 26 Dec, 2020 [facility] Aditya General counseling a nd advice for contraceptive management Z30.09 IMMUNIZATIONS Vaccine Route Administration Date Status TDAP 0.5mL Boostrix IM Intramuscular September 07, 2020 Administere d Influenza 6mo & up Fluzone IM Intramuscular June 02, 2020 Admi nistered Influenza 6mo & up Fluzone Unknown Dec 24, 2016 Other s Influenza 6mo & up Fluzone Unknown Oct 19, 2016 Other s SOCIAL HISTORY Tobacco Use: Social History Observation Description Date Details (start date - stop date) Former Smoker Sex Assigned At : Social History Observation Description Sex Assigned At Unknown Education: Question Answer Notes Level of Education: College Language: Question Answer Notes Languages spoken: Arabic Tobacco Use: Question Answer Notes Are you a: former smoker How long has it been since you last smoked? < 1 month REASON FOR REFERRAL No Information VITAL SIGNS Weight 164 lbs Dec, Weight-kg 74.39 kg Dec, Height 66 in Dec, BMI 26.47 kg/m2 Dec, Blood pressure systolic 126 mm Hg Dec, Blood pressure diastolic 80 mm Hg Dec, MEDICATIONS Medication SIG (Take, Route, Frequency, Duration) Notes Start Da te End Date Status Colace 100 MG 1 capsule as needed Orally twice a day for 60 da y(s) Jun, Not-Taking PROzac 20 MG 1 capsule Orally Once a day Active 28-0.8 MG 1 tablet Orally Once a day for 30 day(s) Aug, Not-Taking Vitamin B-6 50 MG 1 tablet Orally up to three per day Not-Taking Percocet 5-325 MG 1 tablet as needed Orally every 6 hrs Dec, Active Colace 100 MG 1 capsule as needed Orally Once a day Not-Taking Vitamin 27-0.8 MG 1 tablet Orally Once a day Not-Taking guanFACINE HCl Not-Taking Ibuprofen 800 MG 1 tablet with food or milk as needed Ora lly Three times a day Active NIFEdipine ER 30 MG Oral for 30 Not -Taking Ondansetron 4 MG 1 tablet on the tongue and a llow to dissolve Orally Once a day for 30 day(s) Mar, Not-Taking Fiber 625 MG 2 tablets as needed Orally Three times a day Not-Taking Buprenorphine HCl 8 MG 1 tablet under the tongue an d allow to dissolve Sublingual Once a day Active PROzac 40 MG 1 capsule Orally Once a day for 30 day(s) Mar, Active LaMICtal 25 mg 100 in am, 100 at hs Orally Active PROCEDURES No Information RESULTS No Results REASON FOR VISIT PRE OP SURG 01/16/21 MEDICAL (GENERAL) HISTORY Type Description Date Medical History bipolar Medical History anxiety Medical History depression Medical History addiction Medical History hypertension Surgical History hand surgery Surgical History cholecystectomy Surgical History appendectomy Hospitalization History none Hospitalization History childbirth Goals Section No Information Health Concerns No Information MEDICAL EQUIPMENT No Information MENTAL STATUS No Information FUNCTIONAL STATUS No Information ASSESSMENTS Encounter Date Diagnosis Assessment Notes Treatment Notes Treatm ent Clinical Notes Dec, General counseling and advic e for contraceptive management (ICD-10 - Z30.09) I discussed patient's choices for contraception-OCP, contraceptive patch, injection method, Implanon, barrier method, Nuva ring, intrauterine system, tubal ligation. Discussed benefits and risks, methods of use and effectiveness of each. Patient desires to ligation Pre-Operative CounselingProcedure: Laparoscopic bilateral salpingectomySurgeon: Leilani Burgess MD Patient has been counseling regarding the risks of the procedure to include anesthesia risks to include , bleeding/need for blood transfusion, infection, damage to internal organs, uterine perforation, postoperative pain and need for future surgery based on findings. She understands these risks and wishes to proceed with the above procedures. PLAN OF TREATMENT Medication Medication Name Sig Start Date Stop Date Ibuprofen 800 MG 1 tablet with food or milk as needed Ora lly Three times a day Percocet 5-325 MG 1 tablet as needed Orally every 6 hrs Dec, Treatment Notes Assessment Notes Clinical Notes General counseling and advice for contraceptive management I discussed patient's choices for contraception-OCP, contraceptive patch, injection method, Implanon, barrier method, Nuva ring, intrauterine system, tubal ligation. Discussed benefits and risks, methods of use and effectiveness of each. Patient desires to ligationPre-Operative CounselingProcedure: Laparoscopic bilateral salpingectomySurgeon: RAVI Scruggsatient has been counseling regarding the ri sks of the procedure to include anesthesia risks to include , bleeding/need for blood transfusion, infection, damage to internal organs, uterine perforation, postoperative pain and need for future surgery based on findings. She understands these risks and wishes to proceed with the above procedures. Next Appt Details Provider Name:Leilani Julián Aditya, 2021-01-18 1 2:00:00 AM, [address] [facility] [facility], , [place], [address], Provider Name:Leilani Julián Aditya, 2021-02-14 1 1:40:00 AM, [address] [facility], , [place], [address], Insurance Providers Payer Name Payer Address Payer Phone Insured Name Patient Relati onship to Insured Coverage Start Date Coverage End Date [facility] [address]PT [address] [facility] [phone] [employer] [employer] self
--- OUTSIDE RECORDS SUMMARY | 2021-01-18 08:54 | CCD | Continuity of Care Document ---
Author Author Eusebia RUBALCAVA M.D. Organization Unknown Address [address] [place] [phone] Phone [phone] Care Team Providers Care Braille Teacher Name Role Phone Rosalino Rubalcava M.D. AUTM [phone] [facility] AUTM [phone] [employer] AUTM [phone] Problems Active Problems Provider Date Low back pain Rosalino Rubalcava MD Onset: 04/11/2016 Bilateral carpal tunnel syndrome oRsalino Rubalcava MD Onset: 04/11/2016 Knee pain Rosalino Rubalcava MD Onset: 04/11/2016 Raynaud's disease Rosalino Rubalcava MD Onset: 04/11/2016 Acute sinusitis Rosalino Rubalcava MD Onset: 04/11/2016 Essential hypertension Rosalino Rubalcava MD Onset: 04/11/2016 Carpal tunnel syndrome of right wrist Rosalino Rubalcava MD On set: 12/03/2017 Pain in limb ISMAEL Nicholson Onset: 2017 Mononeuropathy of upper limb Kassy Foster M.D. Onset: Social History Type Date Description Comments Sex Unknown ETOH Use Denies alcohol use Tobacco Use Start: 03/18/97 Light tobacco smoker (10 or fewe r cigarettes/day) 1/2 ppd Recreational Drug Use Former Drug User Recreational Drug Use Regularly uses Marijuana Smoking Status Reviewed: 10/08/17 Light tobacco smoker (10 or fewer cigarettes/day) 1/2 ppd Allergies and adverse reactions Active Allergies Criticality Reaction | Severity Comments Date NKDA Unable to assess criticality 12/03/2017 Seasonal Unable to assess criticality 12/03/2017 NKFA Unable to assess criticality 12/03/2017 Medications Active Medications SIG Qnty Indications Ordering Provide r Date Wrist Splint/Cloth/Reversible/Medium Misc use daily b/L wrists 2units G56.03 Rosalino Rubalcava MD 12/03/2017 Lamotrigine 25mg Tablets Dispers 1 tab by mouth twice a day Unknown Suboxone 8-2mg Film Place 1.25 Films Under The Tongue Daily Maximum Daily Dose 1.25 Marco Antonio Unknown Fluoxetine HCL 20mg Capsules Unknown Fluoxetine HCL 40mg Capsules Unknown Tablets 1 by ritu th every day Unknown Medications Administered in Office Medication SIG Qnty Indications Ordering Provider Date Ketorolac (Toradol) Inj 30MG/ML Injection Rosalino Rubalcava MD 12/04/19 18 Immunizations Description No Information Available Vital Signs Date Vital Result Comment 04/11/2020 1:59pm BP Systolic 141 mmHg BP Diastolic 71 mmHg Heart Rate 91 /min Weight 154.00 lb Weight 69.854 kg Height 65 inches 5'5" BMI (Body Mass Index) 25.6 kg/m2 BSA (Body Surface Area) 1.77 m2 09/11/2018 10:21am BP Systolic 130 mmHg BP Diastolic 76 mmHg Heart Rate 70 /min Body Temperature 98.4 F Respiratory Rate 18 /min O2 % BldC Oximetry 98 % Weight 165.00 lb Weight 74.844 kg Height 65 inches 5'5" BMI (Body Mass Index) 27.5 kg/m2 BSA (Body Surface Area) 1.82 m2 Results Test Acquired Date Facility Test Result H/L Range Note Coronavirus 2019 Nasopharygeal 01/13/2021 [facility] Coronavirus 2019 Nasopharygeal ASSAY INFORMATIO <SEE NOTE> 1 1 ASSAY INFORMATION: Real Time RT-PCR NOTE: The COVID-19 assay has been cleared by the U.S. Food and Drug Administration under the Emergency Use Authorization (EUA). [facility] and [facility] are designated as high complexity laboratories by the Clinical Laboratory Improvement Amendments of 1988(CLIA) and are qualified to perform this test. Not Detected Procedures Description No Information Available Medical Devices Description No Information Available Encounters Description No Information Available Assessments Description No Information Available Plan of Treatment 04/11/2020 - Varun Casarez, * O20.0 Threatened * Instructions:* 1)Pt is stable at this time. 2)Continue PNV. 3)RTC in 1-2 weeks for initial OB v isit. Functional Status Functional Condition Comment Date Status Glasses Active Mental Status Description No Information Available Referrals Description No Information Available
--- OUTSIDE RECORDS SUMMARY | 2021-01-18 08:54 | CCD ---
Author Author [facility] Organization [facility] Address Unknown Phone Unavailable Care Team Providers Care Chemistry Physics Teacher Name Role Phone Susan Salazar Unavailable PROBLEMS Type Condition ICD9-CM Code [id number] Code Onset Dates Condition S tatus W/U Status Risk SNOMED Code Notes Problem Supervision of other normal Z34.80 Ac tive confirm 569105553 Problem Chronic hypertension affecting O10.919 Active confirmed 78388392 Problem Raynauds phenomenon without gangrene I73.00 Act fadi confirmed 970703133 Problem Pre-existing hypertension affecting in third trimester O10.913 Active confirmed 709803278 Problem Pre-existing hypertension in third trimester, antepartum O10.913 Active confirmed 79057691 ALLERGIES No Known Allergies ENCOUNTERS from 1983 to 2020-11-28 Encounter Location Date Provider Diagnosis [facility] [address] [place], [place] [phone] [place] [address] 13 Nov, 2020 Susan Salazar IMMUNIZATIONS Vaccine Route Administration Date Status TDAP [...] College Language: Question Answer Notes Languages spoken: Khmer Tobacco Use: Question Answer Notes Are you a: former smoker How long has it been since you last smoked? < 1 month REASON FOR REFERRAL No Information VITAL SIGNS No information MEDICATIONS Medication SIG (Take, Route, Frequency, Duration) Notes Start Da te End Date Status PROzac 20 MG 1 capsule Orally Once a day Active Colace 100 MG 1 capsule as needed Orally twice a day for 60 da y(s) Jun, Not-Taking LaMICtal 25 mg 100 in am, 100 at hs Orally Active Vitamin B-6 50 MG 1 tablet Orally up to three per day Not-Taking NIFEdipine ER 30 MG Oral for 30 Not -Taking Ondansetron 4 MG 1 tablet on the tongue and a llow to dissolve Orally Once a day for 30 day(s) Mar, Active 28-0.8 MG 1 tablet Orally Once a day for 30 day(s) Aug, Active PROzac 40 MG 1 capsule Orally Once a day for 30 day(s) Mar, Active Vitamin 27-0.8 MG 1 tablet Orally Once a day Not-Taking Colace 100 MG 1 capsule as needed Orally Once a day Not-Taking guanFACINE HCl Not-Taking Fiber 625 MG 2 tablets as needed Orally Three times a day Not-Taking Buprenorphine HCl 8 MG 1 tablet under the tongue an d allow to dissolve Sublingual Once a day Active PROCEDURES No Information RESULTS No Results REASON FOR VISIT SURGERY - TUBAL MEDICAL (GENERAL) HISTORY Type Description Date Medical History bipolar Medical History anxiety Medical History depression Medical History addiction Medical History hypertension Surgical History hand surgery Surgical History cholecystectomy Surgical History appendectomy Hospitalization History none Goals Section No Information Health Concerns No Information MEDICAL EQUIPMENT No Information MENTAL STATUS No Information FUNCTIONAL STATUS No Information ASSESSMENTS No Information PLAN OF TREATMENT No Information Insurance Providers Payer Name Payer Address Payer Phone Insured Name Patient Relati onship to Insured Coverage Start Date Coverage End Date [facility] [address]PT [address] [facility] [phone] [employer] self
--- OUTSIDE RECORDS SUMMARY | 2021-01-18 08:54 | CCD ---
Author Organization Unknown Address [address] [place] [id number] Phone [phone] Care Team Providers Care Industrial Waste Inspector Name Role Phone 238 Covid Nurse Unavailable Unavailable Allergies Code Code System Name Reaction Severity Status Onset Codeine Sulfate Active 01/19/2013 Medications Name Status Start Date Stop Date buprenorphine 8 mg-naloxone 2 mg subling ual film DISSOLVE ONE & ONE-HALF films UNDER THE TONGUE ONCE DAILY, MAX DAILY DOSE ONE & ONE-HALF films Lot# [id number] Active Not available buprenorphine HCl 8 mg sublingual tablet DISSOLVE 1.5 TABLETS UNDER THE TONGUE ONCE DAILY MAX DAILY DOSE 1.5 TABLETS Active Not available ClearLax 17 gram/dose oral powder TAKE 17 grams diluted in EIGHT ounces of water OR JUICE AND drink BY MOUTH ONCE DAILY NEEDED Active Not available fluoxetine 20 mg capsule TAKE ONE CAPSULE BY MOUTH EVERY MORNING Active Not available fluoxetine 40 mg capsule TAKE ONE CAPSULE BY MOUTH EVERY MORNING Active Not available lamotrigine 100 mg tablet TAKE ONE TABLET BY MOUTH TWICE DAILY Active No t available Lubricant Eye (PG-PEG 400) 0.4 %-0.3 % d rops INSTILL ONE DROP IN EACH EYE FOUR TIMES DAILY NEEDED Active Not available methylphenidate LA 20 mg biphasic 50-50 capsule,extended release TAKE ONE CAPSULE BY MOUTH EVERY MORNING, MAX DAILY DOSE ONE CAPSULE Active Not available methylphenidate LA 30 mg biphasic 50-50 capsule,extended release TAKE ONE CAPSULE BY MOUTH EVERY MORNING, MAX DAILY DOSE ONE CAPSULE Active Not available ondansetron 4 mg disintegrating tablet DISSOLVE ONE TABLET UNDER THE TONGUE ONCE DAILY Active Not available 28 mg iron-800 mcg tablet TAKE ONE TABLET BY MOUTH ONCE DAILY Active Not available Problems Name Status Onset Date Source Psychoactive Substance Abuse Active 01/19/2013 His tory Abdominal Active 01/19/2013 History Tobacco Use and Exposure - Finding Active 01/19/2013 History Allergic Rhinitis Active 01/30/2013 History Disorder of Ear Active 01/30/[address] Concept Active 05/14/2013 History Anemia Active 07/20/2013 History Hypertensive Disorder Active 07/20/2013 History Finding of General Energy Active 07/20/2013 Histor y Disorder of Upper Extremity Active 07/20/2013 Hist ory Education Active 08/13/2013 History Heart Murmur Active 08/18/2013 History Chest Pain Active 08/18/2013 History Clinical Finding Active 08/18/2013 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 History Depressive Disorder Active History Abnormal Cytology Findings Active Histo ry SNOMED CT Concept Active History Procedures Notes: leep , 2 childbirth 07/23, rt ball d tendon repair, trigger finger repair [id number] Results Lab Results Date Name Specimen Result Interpretation Description Value Range Status Address 12/15/2020 SARS CoV 2 RNA (COVID-19), QL, hammersmith helper-PCR, Respiratory Specimen Nasopharyngeal ABNORMAL Sars Cov 2 RNA detected not detected Final [facility] [place]: [address] [facility] [place] Past Encounters 12/15/2020 Exposure to SARS-CoV-2 Shady Mcdonald MD: [address] [place] [phone], Ph. Social History None recorded. Vaccine List None recorded. Plan of Care Reminders Provider Appointments None recorded. Lab None recorded. Referral None recorded. Procedures None recorded. Surgeries None recorded. Imaging None recorded. Vitals None recorded.
--- OUTSIDE RECORDS SUMMARY | 2021-01-18 08:54 | CCD ---
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 Act fadi confirmed 497048650 Problem Pre-existing hypertension affecting in third trimester O10.913 Active confirmed 659334763 Problem Pre-existing hypertension in third trimester, antepartum O10.913 Active confirmed 30977045 ALLERGIES No Known Allergies ENCOUNTERS from 1983 to 2021-01-05 Encounter Location Date Provider Diagnosis [facility] [address] [phone] [place] [address] Dec, Leilani Burgess IMMUNIZATIONS Vaccine Route Administration Date Status TDAP [...] College Language: Question Answer Notes Languages spoken: Romansh Tobacco Use: Question Answer Notes Are you [...] Information RESULTS No Results REASON FOR VISIT 01/18/21 SURG AUTH MEDICAL (GENERAL) HISTORY Type Description Date Medical History bipolar Medical History anxiety Medical History depression Medical History addiction Medical History hypertension Surgical History hand surgery Surgical History cholecystectomy Surgical History appendectomy Hospitalization History none Goals Section No Information Health Concerns No Information MEDICAL EQUIPMENT No Information MENTAL STATUS No Information FUNCTIONAL STATUS No Information ASSESSMENTS No Information PLAN OF TREATMENT Next Appt Details Provider Name:Leilani Julián Aditya, 2021-01-10 0 2:40:00 PM, [address] [place] [address] , [place], [address], Provider Name:Leilani Burgess, 2021-01-18 1 2:00:00 AM, [address] [place] [address] , [place], [address], Provider Name:Leilani Burgess 2021-02-14 1 1:40:00 AM, [address] [place] [address] , [place], [phone], Insurance Providers Payer Name Payer Address Payer Phone Insured Name Patient Relati onship to Insured Coverage Start Date Coverage End Date [facility] DEPT [address] [place] [phone] MOOK JC self
--- OUTSIDE RECORDS SUMMARY | 2021-01-18 08:55 | CCD ---
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 Role Phone Jose Manuel Mcdonald MD Unavailable Unavailable Jose Manuel Mcdonald MD Unavailable Unavailable Jose Manuel Mcdonald MD Unavailable Unavailable Jose Manuel Mcdonald MD Unavailable Unavailable Jose Manuel Mcdonald MD Unavailable Unavailable Jose Manuel Mcdonald MD Unavailable Unavailable Jose Manuel Mcdonald MD Unavailable Unavailable Jose Manuel Mcdonald MD Unavailable Unavailable Jose Manuel Mcdonald MD Unavailable Unavailable Jose Manuel Mcdonald MD Unavailable Unavailable Jose Manuel Mcdonald MD Unavailable Unavailable Jose Manuel Mcdonald MD Unavailable Unavailable Jose Manuel Mcdonald MD Unavailable Unavailable Jose Manuel Mcdonald MD Unavailable Unavailable Jose Manuel Mcdonald MD Unavailable Unavailable Jose Manuel Mcdonald MD Unavailable Unavailable Jose Manuel Mcdonald MD Unavailable Unavailable Jose Manuel Mcdonald MD Unavailable Unavailable Jose Manuel Mcdonald MD Unavailable Unavailable Jose Manuel Mcdonald MD Unavailable Unavailable Jose Manuel Mcdonald MD Unavailable Unavailable Jose Manuel Mcdonald MD Unavailable Unavailable Jose Manuel Mcdonald MD Unavailable Unavailable Jose Manuel Mcdonald MD Unavailable Unavailable Jose Manuel Mcdonald MD Unavailable Unavailable Jose Manuel Mcdonald MD Unavailable Unavailable Jose Manuel Mcdonald MD Unavailable Unavailable Jose Manuel Mcdonald MD Unavailable Unavailable Jose Manuel Mcdonald MD Unavailable Unavailable Jose Manuel Mcdonald MD Unavailable Unavailable Jose Manuel Mcdonald MD Unavailable Unavailable Jose Manuel Mcdonald MD Unavailable Unavailable Jose Manuel Mcdonald MD Unavailable Unavailable Jose Manuel Mcdonald MD Unavailable Unavailable Jose Manuel Mcdonald MD Unavailable Unavailable Jose Manuel Mcdonald MD Unavailable Unavailable Jose Manuel Mcdonald MD Unavailable Unavailable Jose Manuel Mcdonald MD Unavailable Unavailable Jose Manuel Mcdonald MD Unavailable Unavailable Jose Manuel Mcdonald MD Unavailable Unavailable Jose Manuel Mcdonald MD Unavailable Unavailable Jose Manuel Mcdonald MD Unavailable Unavailable Jose Manuel Mcdonald MD Unavailable Unavailable Jose Manuel Mcdonald MD Unavailable Unavailable Jose Manuel Mcdonald MD Unavailable Unavailable Jose Manuel Mcdonald MD Unavailable Unavailable Jose Manuel Mcdonald MD Unavailable Unavailable Jose Manuel Mcdonald MD Unavailable Unavailable Jose Manuel Mcdonald MD Unavailable Unavailable Jose Manuel Mcdonald MD Unavailable Unavailable Jose Manuel Mcdonald MD Unavailable Unavailable Jose Manuel Mcdonald MD Unavailable Unavailable Jose Manuel Mcdonald MD Unavailable Unavailable Jose Manuel Mcdonald MD Unavailable Unavailable Jose Manuel Mcdonald MD Unavailable Unavailable Jose Manuel Mcdonald MD Unavailable Unavailable Jose Manuel Mcdonald MD Unavailable Unavailable Jose Manuel Mcdonald MD Unavailable Unavailable Jose Manuel Mcdonald MD Unavailable Unavailable Jose Manuel Mcdonald MD Unavailable Unavailable Jose Manuel Mcdonald MD Unavailable Unavailable Jose Manuel Mcdonald MD Unavailable Unavailable Jose Manuel Mcdonald MD Unavailable Unavailable Jose Manuel Mcdonald MD Unavailable Unavailable Jose Manuel Mcdonald MD Unavailable Unavailable Jose Manuel Mcdonald MD Unavailable Unavailable Jose Manuel Mcdonald MD Unavailable Unavailable Jose Manuel Mcdonald MD Unavailable Unavailable Jose Manuel Mcdonald MD Unavailable Unavailable Jose Manuel Mcdonald MD Unavailable Unavailable Jose Manuel Mcdonald MD Unavailable Unavailable Jose Manuel Mcdonald MD Unavailable Unavailable Jose Manuel Mcdonald MD Unavailable Unavailable Jose Manuel Mcdonald MD Unavailable Unavailable Jose Manuel Mcdonald MD Unavailable Unavailable Jose Manuel Mcdonald MD Unavailable Unavailable Jose Manuel Mcdonald MD Unavailable Unavailable Jose Manuel Mcdonald MD Unavailable Unavailable Jose Manuel Mcdonald MD Unavailable Unavailable Jose Manuel Mcdonald MD Unavailable Unavailable Jose Manuel Mcdonald MD Unavailable Unavailable Jose Manuel Mcdonald MD Unavailable Unavailable Jose Manuel Mcdonald MD Unavailable Unavailable Jose Manuel Mcdonald MD Unavailable Unavailable Jose Manuel Mcdonald MD Unavailable Unavailable Jose Manuel Mcdonald MD Unavailable Unavailable Jose Manuel Mcdonald MD Unavailable Unavailable Jose Manuel Mcdonald MD Unavailable Unavailable Jose Manuel Mcdonald MD Unavailable Unavailable Jose Manuel Mcdonald MD Unavailable Unavailable Jose Manuel Mcdonald MD Unavailable Unavailable Jose Manuel Mcdonald MD Unavailable Unavailable Jose Manuel Mcdonald MD Unavailable Unavailable Nwogu, U Varun DO Unavailable Unavailable Nwogu, U Varun DO Unavailable Unavailable Nwogu, U Varun DO Unavailable Unavailable Nwogu, U Varun DO Unavailable Unavailable Nwogu, U Varun DO Unavailable Unavailable Nwogu, U Varun DO Unavailable Unavailable Nwogu, U Varun DO Unavailable Unavailable Nwogu, U Varun DO Unavailable Unavailable Nwogu, U Varun DO Unavailable Unavailable Nwogu, U Varun DO Unavailable Unavailable Nwogu, U Varun DO Unavailable Unavailable Nwogu, U Varun DO Unavailable Unavailable Nwogu, U Varun DO Unavailable Unavailable Nwogu, U Varun DO Unavailable Unavailable Nwogu, U Varun DO Unavailable Unavailable Nwogu, U Varun DO Unavailable Unavailable Nwogu, U Varun DO Unavailable Unavailable Nwogu, U Varun DO Unavailable Unavailable Nwogu, U Varun DO Unavailable Unavailable Nwogu, U Varun DO Unavailable Unavailable YESICA ROJAS MD Unavailable Unavailable YESICA ROJAS MD Unavailable Unavailable YESICA ROJAS MD Unavailable Unavailable YESICA ROJAS MD Unavailable Unavailable YESICA ROJAS MD Unavailable Unavailable YESICA ROJAS MD Unavailable Unavailable YESICA ROJAS MD Unavailable Unavailable YESICA ROJAS MD Unavailable Unavailable YESICA ROJAS MD Unavailable Unavailable YESICA ROJAS MD Unavailable Unavailable YESICA ROJAS MD Unavailable Unavailable YESICA ROJAS MD Unavailable Unavailable YESICA ROJAS MD Unavailable Unavailable YESICA ROJAS MD Unavailable Unavailable YESICA ROJAS MD Unavailable Unavailable YESICA ROJAS MD Unavailable Unavailable YESICA ROJAS MD Unavailable Unavailable YESICA ROJAS MD Unavailable Unavailable ROJAS, YESICA MD Unavailable Unavailable ROJAS, YESICA MD Unavailable Unavailable ROJAS, YESICA MD Unavailable Unavailable ROJAS, YESICA MD Unavailable Unavailable ROJAS, YESICA MD Unavailable Unavailable ROJAS, YESICA MD Unavailable Unavailable ROJAS, YESICA MD Unavailable Unavailable ROJAS, YESICA MD Unavailable Unavailable ROJAS, YESICA MD Unavailable Unavailable ROJAS, YESICA MD Unavailable Unavailable ROJAS, YESICA MD Unavailable Unavailable ROJAS, YESICA MD Unavailable Unavailable ROJAS, YESICA MD Unavailable Unavailable ROJAS, YESICA MD Unavailable Unavailable ROJAS, YESICA MD Unavailable Unavailable ROJAS, YESICA MD Unavailable Unavailable ROJAS, YESICA MD Unavailable Unavailable ROJAS, YESICA MD Unavailable Unavailable ROJAS, YESICA MD Unavailable Unavailable ROJAS, YESICA MD Unavailable Unavailable ROJAS, YESICA MD Unavailable Unavailable ROJAS, YESICA MD Unavailable Unavailable ROJAS, YESICA MD Unavailable Unavailable ROJAS, YESICA MD Unavailable Unavailable ROJAS, YESICA MD Unavailable Unavailable ROJAS, YESICA MD Unavailable Unavailable ROJAS, YESICA MD Unavailable Unavailable ROJAS, YESICA MD Unavailable Unavailable ROJAS, YESICA MD Unavailable Unavailable ROJAS, YESICA MD Unavailable Unavailable ROJAS, YESICA MD Unavailable Unavailable ROJAS, YESICA MD Unavailable Unavailable ROJAS, YESICA MD Unavailable Unavailable ROJAS, YESICA MD Unavailable Unavailable ROJAS, YESICA MD Unavailable Unavailable ROJAS, YESICA MD Unavailable Unavailable ROJAS, YESICA MD Unavailable Unavailable ROJAS, YESICA MD Unavailable Unavailable ROJAS, YESICA MD Unavailable Unavailable ROJAS, YESICA MD Unavailable Unavailable ROJAS, YESICA MD Unavailable Unavailable ROJAS, YESICA MD Unavailable Unavailable ROJAS, YESICA MD Unavailable Unavailable ROJAS, YESCIA MD Unavailable Unavailable ROJAS, YESICA MD Unavailable Unavailable ROJAS, YESICA MD Unavailable Unavailable ROJAS, YESICA MD Unavailable Unavailable ROJAS, YESICA MD Unavailable Unavailable ROJAS, YESICA MD Unavailable Unavailable ROJAS, YESICA MD Unavailable Unavailable ROJAS, YESICA MD Unavailable Unavailable ROJAS, YESICA MD Unavailable Unavailable Re-disclosure Warning The records that you are about to access may contain information from federally-assisted alcohol or drug abuse programs. If such information is present, then the following federally mandated warning applies: This information has been disclosed to you from records protected by federal confidentiality rules (42 CFR part 2). The federal rules prohibit you from making any further disclosure of this information unless further disclosure is expressly permitted by the written consent of the person to whom it pertains or as otherwise permitted by 42 CFR part 2. A general authorization for the release of medical or other information is NOT sufficient for this purpose. The Federal rules restrict any use of the information to criminally investigate or prosecute any alcohol or drug abuse patient.The records that you are about to access may contain highly sensitive health information, the redisclosure of which is protected by Article 27-F of the [facility] Public Health law. If you continue you may have access to information: Regarding HIV / AIDS; Provided by facilities licensed or operated by the [facility] Office of Mental Health; or Provided by the [facility] Office for People With Developmental Disabilities. If such information is present, then the following [facility] mandated warning applies: This information has been disclosed to you from confidential records which are protected by state law. State law prohibits you from making any further disclosure of this information without the specific written consent of the person to whom it pertains, or as otherwise permitted by law. Any unauthorized further disclosure in violation of state law may result in a fine or correction sentence or both. A general authorization for the release of medical or other information is NOT sufficient authorization for further disc losure. Allergies and Adverse Reactions Type Description Substance Reaction Status Data Source(s ) No Known Drug Allergies No Known Drug Allergies [facility] No Known Environmental Allergies No Known Environmental Al lergies [facility] No Known Food Allergies No Known Food Allergies [facility] Family History Family Member Name Family Member Gender Family Member Status Date o f Status Description Data Source(s) Unknown Male Problem MEDENT ([facility]) () Encounters Encounter Providers Location Date Indications Data Source(s ) [place] [address] [facility] [address] 01/10/2021 12:00:00 AM EDT eCW1 ([facility]) Unknown [address] [facility] [place] [address] 01/05/2021 12:00:00 AM EDT eCW1 ([facility]) Shady Mcdonald MD: [address] [place] [phone], Ph. Attender: Shady Mcdonald MD [facility] Medical 12/15/2020 12:00:00 AM EDT ERICK ([facility] [place]) Unknown [address] [facility] [address] 11/28/2020 12:00:00 AM EDT eCW1 ([facility]) ([facility]) [facility] [address] [place] [address] 10/07/2020 12:00:00 AM EDT eCW1 ([facility]) ([facility]) [facility] [address] [place] [address] 09/30/2020 12:00:00 AM EDT eCW1 ([facility]) ([facility]) [facility] [address] [place] [address] 09/21/2020 12:00:00 AM EDT eCW1 ([facility]) ([facility]) [facility] [address] [place] [address] 09/07/2020 12:00:00 AM EDT eCW1 ([facility]) ([facility]) [facility] [address] [place] [address] 08/24/2020 12:00:00 AM EDT eCW1 ([facility]) ([facility]) [facility] [address] [place] [address] 08/10/2020 12:00:00 AM EDT eCW1 ([facility]) Unknown [address] [facility] [address] 08/08/2020 12:00:00 AM EDT eCW1 ([facility]) ([facility]) [facility] [address] [place] [address] 06/02/2020 12:00:00 AM EDT eCW1 ([facility]) (WC COB) [facility] Complicated OB [address] [place] [address] 05/05/2020 12:00:00 AM EST eCW1 ([facility]) ([facility]) [facility] [address] [place] [address] 04/19/2020 12:00:00 AM EST eCW1 ([facility]) Outpatient Attender: Varun Casarez DOConsultant: YESICA JO MD 04/11/2020 01:40:00 PM EST - 04/11/2020 01:40:[address] [facility] Immunizations Vaccine Date Status Description Data Source(s) Tdap 09/07/2020 01:53:00 PM EDT completed e CW1 ([facility]) Tdap 09/07/2020 01:53:00 PM EDT completed e CW1 ([facility]) Tdap 09/07/2020 01:53:00 PM EDT completed e CW1 ([facility]) Tdap 09/07/2020 01:53:00 PM EDT completed e CW1 ([facility]) Tdap 09/07/2020 01:53:00 PM EDT completed e CW1 ([facility]) Tdap 09/07/2020 01:53:00 PM EDT completed e CW1 ([facility]) Tdap 09/07/2020 01:53:00 PM EDT completed e CW1 ([facility]) New in 2011. IIV4 06/02/2020 05:05:00 PM EDT completed eCW1 ([facility]) New in 2011. IIV4 06/02/2020 05:05:00 PM EDT completed eCW1 ([facility]) New in 2011. IIV4 06/02/2020 05:05:00 PM EDT completed eCW1 ([facility]) New in 2011. IIV4 06/02/2020 05:05:00 PM EDT completed eCW1 ([facility]) New in 2011. IIV4 06/02/2020 05:05:00 PM EDT completed eCW1 ([facility]) New in 2011. IIV4 06/02/2020 05:05:00 PM EDT completed eCW1 ([facility]) New in 2011. IIV4 06/02/2020 05:05:00 PM EDT completed eCW1 ([facility]) New in 2011. IIV4 06/02/2020 05:05:00 PM EDT completed eCW1 ([facility]) New in 2011. IIV4 06/02/2020 05:05:00 PM EDT completed eCW1 ([facility]) New in 2011. IIV4 06/02/2020 05:05:00 PM EDT completed eCW1 ([facility]) New in 2011. IIV4 06/02/2020 05:05:00 PM EDT completed eCW1 ([facility]) Medications Medication Brand Name Start Date Product Form Dose Route Admi nistrative Instructions Pharmacy Instructions Status Indications Reaction Description Data Source(s) Acetaminophen 325 MG / Oxycodone Hydroch loride 5 MG Oral Tablet [Percocet] Percocet 5-325 MG Percocet 5-325 MG 01/11/2021 12:00:00 AM EDT 1 .0 {tablet_as_needed} active Percocet 5-32 5 MG eCW1 ([facility]) Insurance Providers Payer name Policy type / Coverage type Policy ID Covered democrat ID Covered democrat's relationship to cobian Policy Cobian Plan Information Medicaid P [id number] S [id number] Medicaid P [id number] S [id number] AHMET I [id number] Self [id number] MEDICAID M [id number] Self [id number] [facility] [place] [id number] Self [id number] [facility] [place] [id number] 18 [id number] ANSI-Commercial [id number] [facility] [place] Commercial [id number] Self [id number] [facility] [place] Commercial [id number] Self [id number] [facility] [place] [id number] Self [id number] [facility] [place] [id number] Self [id number] [facility] [facility] [place] [id number] 18 [id number] [facility] COMMUNTY PLAN [id number] [facility] Communty Plan Medicaid [id number] Self [id number] [facility] [place] [id number] Self [facility] [place] [facility] [id number] 18 [id number] [facility] [place] [id number] 18 [id number] MEDICAID -O/P EMERGENCY ROOM [id number] MEDICAID-PHYSICIAN [id number] Managed Care BCBS S [id number] S [id number] MEDICAID [id number] SP [id number] BLUE CROSS [employer] PLAN [id number] SP [id number] O BLUE [id number] SP [id number] BLUE [employer]OSS [employer] PLAN UNAVAILABLE UNAVAILABLE HMO BLUE [id number] SP [id number] AHMET [id number] SP [id number] [place] [id number] 18 [id number] [place] [id number] S [id number] [facility] [place] [id number] Self [id number] Problems, Conditions, and Diagnoses Code Display Name Description Problem Type Effective Dates Data Source(s) O200 Threatened Threatened Diagnosis 0 04/11/2020 01:40:[address] [facility] O10.919 Benign essential hypertension in obstetr ic context Chronic hypertension affecting Problem 09/07/2020 12:00:00 AM EDT eCW1 ([facility]) Z34.80 care Supervision of other normal P roblem 04/18/2020 12:00:00 AM EST eCW1 ([facility]) [id number] SNOMED CT Concept SNOMED CT Concept Problem 12/30 04:17:22 PM EDT HEMET ([facility]) [id number] Abnormal cytology findings Abnormal Cytology Findings Problem 12/31/2019 04:17:22 PM EDT HEMET ([facility]) [id number] Depressive disorder Depressive Disorder Problem 1 04:17:22 PM EDT HEMET ([facility]) Surgeries/Procedures Procedure Description Date Indications Data Source(s) TDAP VACCINE 7/> YR IM 09/07/2020 12:00:00 AM EDT eCW1 ([facility]) INFLUENZA VIRUS VACC SPLIT PRSRV FREE 3 YRS/> IM 06/02 12:00:00 AM EDT eCW1 ([facility]) Results ID Date Data Source [id number] 01/13/2021 10:30:00 AM EDT MEDENT ([facility]) Name Value Range Interpretation Code Description Data Matilda rce(s) Supporting Document(s) Laboratory test finding (navigational concept) Laboratory test result [facility] ([facility]) ASSAY INFORMATION: Real Time RT-PCR NOTE: The COVID-19 assay has been cleared by the U.S. Food and Drug Administration under the Emergency Use Authorization (EUA). [facility] and [facility] are designated as high complexity laboratories by the Clinical Laboratory Improvement Amendments of 1988(CLIA) and are qualified to perform this test. Not Detected ID Date Data Source [id number] 01/13/2021 10:30:00 AM EDT [facility] Name Value Range Interpretation Code Description Data Matilda rce(s) Supporting Document(s) SARS-CoV-2 (COVID-19) RNA [Presence] in Respiratory specimen by [facility] with probe detection Not Detected [facility] This lab was ordered by [facility] and reported by [facility]. ID Date Data Source [id number] 12/17/2020 05:49:00 PM EDT [facility] Name Value Range Interpretation Code Description Data Matilda rce(s) Supporting Document(s) [id number] Detected Abnormal (applies to non-numeric res ults) [employer] A Detected result is considered a positi ve test resultfor COVID-19. This indicates that RNA from SARS-CoV-2(formerly 2019-nCoV) was detected, and the patient isinfected with the virus and presumed to be contagious.If requested by public health authority, specimen willbe sent for additional testing.Please review the "Fact Sheets" and FDA authorizedlabeling available for health care providers andpatients using the following websites:[email or web address]/fact-sheeth [email or web address]/fact-sheet.htmlT his test has been authorized by the FDA under anEmergency Use Authorization (EUA) for use by authorizedlaboratories.Due to the current public health emergency, [facility] is receiving a high volume of samples froma wide variety of swabs and media for COVID-19 testing.In order to serve patients during this public healthcrisis, samples from appropriate clinical sources arebeing tested. Negative test results derived fromspecimens received in non- commercially manufacturedviral collection and transport media, or in media andsample collection kits not yet authorized by FDA forCOVID-19 testing should be cautiously evaluated andthe patient potentially subjected to extra precautionssuch as additional clinical monitoring, includingcollection of an additional specimen.Methodology: Nucleic Acid Amplification Test (NAAT)includes RT-PCR or TMAAdditional information about COVID-19 can be found atthe [employer] website:www.[facility].com/Covid19 ID Date Data Source [id number] 12/15/2020 02:02:00 PM EDT ERICK ([facility]) Name Value Range Interpretation Code Description Data Matilda rce(s) Supporting Document(s) SARS-CoV-2 (COVID-19) RNA [Presence] in Respiratory specimen by [facility] with probe detection detected not detected Abnormal (applies to non-numeric results) Sars Cov 2 RNA ERICK ([facility]) ID Date Data Source [id number] 12/15/2020 02:02:00 PM EDT [facility] Name Value Range Interpretation Code Description Data Matilda rce(s) Supporting Document(s) SARS-COV-2 RNA RESP QL [facility]+PROBE Detected [facility] This lab was ordered by [facility] and reported by [facility]. ID Date Data Source TOTAL PROTEIN,RANDOM URINE 04/19/2020 12:00:00 AM EST eCW1 ( [facility]) Name Value Range Interpretation Code Description Data Matilda rce(s) Supporting Document(s) 14.1 0.0-12.0 TOTAL PROTEIN,RANDOM URIN E eCW1 ([facility]) ID Date Data Source [id number] 04/19/2020 12:00:00 AM EST eCW1 ([facility]) Name Value Range Interpretation Code Description Data Matilda rce(s) Supporting Document(s) NEGATIVE NEGATIVE eCW1 ([facility]) ID Date Data Source URINE CULTURE 04/19/2020 12:00:00 AM EST eCW1 ([facility]) Name Value Range Interpretation Code Description Data Matilda rce(s) Supporting Document(s) Laboratory studies (set) URINE CULTU RE eCW1 ([facility]) ID Date Data Source CREATININE,RANDOM URINE 04/19/2020 12:00:00 AM EST eCW1 ([facility]) Name Value Range Interpretation Code Description Data Matilda rce(s) Supporting Document(s) 107.0 CREATININE,RANDOM URINE eCW1 ( [facility]) ID Date Data Source Pre Eclampsia Profile 04/19/2020 12:00:00 AM EST eCW1 ([facility]) Name Value Range Interpretation Code Description Data Matilda rce(s) Supporting Document(s) 0.56 0.55-1.30 CREATININE FOR GFR eCW1 ([facility]) 16 7-37 AST/SGOT eCW1 ([facility]) > 60.0 >60 GLOMERULAR FILTRATION RATE eCW 1 ([facility]) 0.1 0.2-1.0 BILIRUBIN,TOTAL eCW1 ([facility]) 162 84-246 LDH LACTATE DEHYDROGENASE eCW1 ([facility]) 29 12-78 ALT/SGPT eCW1 ([facility]) 2.2 2.6-6.0 URIC ACID eCW1 ([facility]) ID Date Data Source HEPATITIS C ANTIBODY INDEX 04/19/2020 12:00:00 AM EST eCW1 ( [facility]) Name Value Range Interpretation Code Description Data Matilda rce(s) Supporting Document(s) < 0.0 <0.8 HEPATITIS C VIRUS ERENDIRA IND EX eCW1 ([facility]) ID Date Data Source RUBELLA IMMUNE STATUS IgG 04/19/2020 12:00:00 AM EST eCW1 ([facility]) Name Value Range Interpretation Code Description Data Matilda rce(s) Supporting Document(s) IMMUNE IMMUNE RUBELLA IgG QUALITATIVE eCW1 ( [facility]) ID Date Data Source SYPHILIS ANTIBODY (RPR SCREEN) 04/19/2020 12:00:00 AM EST eC W1 ([facility]) Name Value Range Interpretation Code Description Data Matilda rce(s) Supporting Document(s) NONREACTIVE NONREACTIVE SYPHILIS eCW1 ([facility]) ID Date Data Source [id number] 04/19/2020 12:00:00 AM EST eCW1 ([facility]) Name Value Range Interpretation Code Description Data Matilda rce(s) Supporting Document(s) eCW1 ([facility]) ID Date Data Source CHLAMYDIA & GC DNA AMPLIFICAT 04/19/2020 12:00:00 AM EST eCW 1 ([facility]) Name Value Range Interpretation Code Description Data Matilda rce(s) Supporting Document(s) Chlamydia trachomatis rRNA [Presence] in Unspecified specimen by Probe and target amplification method NEGATIVE NEGATIVE CHLAMYDIA DNA AMPLIFICATION eCW1 ([facility]) ID Date Data Source CBC - Complete Blood Count 04/19/2020 12:00:00 AM EST eCW1 ( [facility]) Name Value Range Interpretation Code Description Data Matilda rce(s) Supporting Document(s) 37.0 36.0-47.0 eCW1 ([facility]) 7.5 4.0-10.0 eCW1 ([facility]) 4.21 4.00-5.40 eCW1 ([facility]) 12.1 12.0-15.5 eCW1 ([facility]) 32.7 32.0-36.5 eCW1 ([facility]) 12.1 11.5-14.5 eCW1 ([facility]) 87.9 80.0-96.0 eCW1 ([facility]) 28.7 27.0-33.0 eCW1 ([facility]) 185 150-450 eCW1 ([facility]) ID Date Data Source Type and Screen Prenatal1 04/19/2020 12:00:00 AM EST eCW1 ([facility]) Name Value Range Interpretation Code Description Data Matilda rce(s) Supporting Document(s) NEGATIVE AB SCREEN PNP1 GEL (VIS) eCW1 ([facility]) ID Date Data Source [id number] 03/09/2020 10:48:00 PM EST MEDENT ([facility]) Name Value Range Interpretation Code Description Data Matilda rce(s) Supporting Document(s) Laboratory test finding (navigational concept) Laboratory test r esult Normal (applies to non-numeric results) MEDENT ([facility]) <content>QUANTITATIVE RESULT QU ALITATIVE INTERPRETATION</content>
<content> </content>
<content><5.0 IU/L NEGATIVE</content>
<content>5.0 - 25.0 IU/L INDETERMINATE</content>
<content>>25.0 IU/L POSITIVE</content>
<content></content> Procedure Social History Code Duration Value Status Description Data Source(s ) Smoking 01/10/2021 12:00:00 AM EDT Former Smoker completed Former Smoker eCW1 ([facility]) Smoking 10/17/2020 12:00:00 AM EDT Former Smoker completed Former Smoker eCW1 ([facility]) Smoking 10/17/2020 12:00:00 AM EDT Former Smoker completed Former Smoker eCW1 ([facility]) Smoking 10/07/2020 12:00:00 AM EDT Former Smoker completed Former Smoker eCW1 ([facility]) Smoking 09/27/2020 12:00:00 AM EDT Former Smoker completed Former Smoker eCW1 ([facility]) Smoking 09/20/2020 12:00:00 AM EDT Former Smoker completed Former Smoker eCW1 ([facility]) Smoking 09/07/2020 12:00:00 AM EDT Former Smoker completed Former Smoker eCW1 ([facility]) Smoking 08/24/2020 12:00:00 AM EDT Former Smoker completed Former Smoker eCW1 ([facility]) Smoking 08/10/2020 12:00:00 AM EDT Former Smoker completed Former Smoker eCW1 ([facility]) Smoking 06/29/2020 12:00:00 AM EDT Former Smoker completed Former Smoker eCW1 ([facility]) Smoking 06/02/2020 12:00:00 AM EDT Former Smoker completed Former Smoker eCW1 ([facility]) Smoking 05/02/2020 12:00:00 AM EST Former Smoker completed Former Smoker eCW1 ([facility]) Smoking 04/18/2020 12:00:00 AM EST Former Smoker completed Former Smoker eCW1 ([facility]) Vital Signs ID Date Data Source UNK Name Value Range Interpretation Code Description Data Source(s) Body weight 164 [lb_av] 164 [lb_av] eCW1 ([facility]) Body weight 74.39 kg 74.39 kg eCW1 ([facility]) Body height 66 [in_i] 66 [in_i] eCW1 ([facility]) Body mass index (BMI) [Ratio] 26.47 kg/m2 26.47 kg/m2 eCW1 ([facility]) Systolic blood pressure 126 mm[Hg] 126 mm[Hg] e CW1 ([facility]) Diastolic blood pressure 80 mm[Hg] 80 mm[Hg] eCW1 ([facility]) Body weight 177.0 [lb_av] 177.0 [lb_av] eCW1 ([facility]) Body weight 80.29 kg 80.29 kg eCW1 ([facility]) Body height 66 [in_i] 66 [in_i] eCW1 ([facility]) Systolic blood pressure 126 mm[Hg] 126 mm[Hg] e CW1 ([facility]) Diastolic blood pressure 78 mm[Hg] 78 mm[Hg] eCW1 ([facility]) Body mass index (BMI) [Ratio] 28.569 kg/m2 28.5 69 kg/m2 eCW1 ([facility]) Body weight 174.6 [lb_av] 174.6 [lb_av] eCW1 ([facility]) Body weight 79.2 kg 79.2 kg eCW1 ([facility]) Body height 66 [in_i] 66 [in_i] eCW1 ([facility]) Body mass index (BMI) [Ratio] 28.18 kg/m2 28.18 kg/m2 eCW1 ([facility]) Systolic blood pressure 130 mm[Hg] 130 mm[Hg] e CW1 ([facility]) Diastolic blood pressure 70 mm[Hg] 70 mm[Hg] eCW1 ([facility]) Body weight 172.8 [lb_av] 172.8 [lb_av] eCW1 ([facility]) Body weight 78.38 kg 78.38 kg eCW1 ([facility]) Body height 66 [in_i] 66 [in_i] eCW1 ([facility]) Body mass index (BMI) [Ratio] 27.891 kg/m2 27.8 91 kg/m2 eCW1 ([facility]) Systolic blood pressure 124 mm[Hg] 124 mm[Hg] e CW1 ([facility]) Diastolic blood pressure 70 mm[Hg] 70 mm[Hg] eCW1 ([facility]) Body weight 168.8 [lb_av] 168.8 [lb_av] eCW1 ([facility]) Body weight 76.57 kg 76.57 kg eCW1 ([facility]) Body height 66 [in_i] 66 [in_i] eCW1 ([facility]) Body mass index (BMI) [Ratio] 27.245 kg/m2 27.2 45 kg/m2 eCW1 ([facility]) Systolic blood pressure 114 mm[Hg] 114 mm[Hg] e CW1 ([facility]) Diastolic blood pressure 66 mm[Hg] 66 mm[Hg] eCW1 ([facility]) Body weight 167.2 [lb_av] 167.2 [lb_av] eCW1 ([facility]) Body weight 75.84 kg 75.84 kg eCW1 ([facility]) Body height 66 [in_i] 66 [in_i] eCW1 ([facility]) Body mass index (BMI) [Ratio] 26.987 kg/m2 26.9 87 kg/m2 eCW1 ([facility]) Systolic blood pressure 116 mm[Hg] 116 mm[Hg] e CW1 ([facility]) Diastolic blood pressure 68 mm[Hg] 68 mm[Hg] eCW1 ([facility]) Body weight 163 [lb_av] 163 [lb_av] eCW1 ([facility]) Body weight 73.94 kg 73.94 kg eCW1 ([facility]) Body height 66 [in_i] 66 [in_i] eCW1 ([facility]) Body mass index (BMI) [Ratio] 26.309 kg/m2 26.3 09 kg/m2 eCW1 ([facility]) Systolic blood pressure 122 mm[Hg] 122 mm[Hg] e CW1 ([facility]) Diastolic blood pressure 62 mm[Hg] 62 mm[Hg] eCW1 ([facility]) Body weight 159.2 [lb_av] 159.2 [lb_av] eCW1 ([facility]) Body weight 72.21 kg 72.21 kg eCW1 ([facility]) Body height 66 [in_i] 66 [in_i] eCW1 ([facility]) Body mass index (BMI) [Ratio] 25.696 kg/m2 25.6 96 kg/m2 eCW1 ([facility]) Systolic blood pressure 110 mm[Hg] 110 mm[Hg] e CW1 ([facility]) Diastolic blood pressure 62 mm[Hg] 62 mm[Hg] eCW1 ([facility]) Body weight 155.8 [lb_av] 155.8 [lb_av] eCW1 ([facility]) Body weight 70.67 kg 70.67 kg eCW1 ([facility]) Body height 66 [in_i] 66 [in_i] eCW1 ([facility]) Body mass index (BMI) [Ratio] 25.147 kg/m2 25.1 47 kg/m2 eCW1 ([facility]) Systolic blood pressure 122 mm[Hg] 122 mm[Hg] e CW1 ([facility]) Diastolic blood pressure 62 mm[Hg] 62 mm[Hg] eCW1 ([facility]) Body weight 150.0 [lb_av] 150.0 [lb_av] eCW1 ([facility]) Body height 66 [in_i] 66 [in_i] eCW1 ([facility]) Body mass index (BMI) [Ratio] 24.211 kg/m2 24.2 11 kg/m2 eCW1 ([facility]) Systolic blood pressure 126 mm[Hg] 126 mm[Hg] e CW1 ([facility]) Diastolic blood pressure 78 mm[Hg] 78 mm[Hg] eCW1 ([facility]) Systolic blood pressure 141 mm[Hg] 141 mm[Hg] M EDENT ([facility]) Diastolic blood pressure 71 mm[Hg] 71 mm[Hg] MEDENT ([facility]) Heart rate 91 /min 91 /min MEDENT ([facility]) Body weight 154.00 [lb_av] 154.00 [lb_av] MEDEN T ([facility]) Body weight 69.854 kg 69.854 kg MEDENT ([facility]) Body height 65 [in_i] 65 [in_i] [facility] ([facility]) 5'5" Body mass index (BMI) [Ratio] 25.6 kg/m2 25.6 k g/m2 [facility] ([facility]) Body surface area Derived from formula 1.77 m2 1.77 m2 [facility] ([facility]) Patient Treatment Plan of Care Planned Activity Planned Date Details Description Data Source (s) Acetaminophen 325 MG / Oxycodone Hydrochloride 5 MG Or al Tablet [Percocet] 01/11/2021 12:00:00 AM EDT eCW1 ([facility])
[2021-01-18 09:53] LABS: HEMATOCRIT 42.5 % (36.0-47.0); HEMOGLOBIN 13.7 g/dl (12.0-15.5); MEAN CORPUSCULAR HEMOGLOBIN 29.1 pg (27.0-33.0); MEAN CORPUSCULAR HGB CONC 32.2 g/dl (32.0-36.5); MEAN CORPUSCULAR VOLUME 90.4 fl (80.0-96.0); PLATELET COUNT, AUTOMATED 222 10^3/uL (150-450)
[2021-01-18] MEDS ORDERED: propofoL 200 MG/20 ML VIAL As Ordered ONE (10:29)
[2021-01-18] MEDS ORDERED: LIDOCAINE 2% 100MG/5ML SDV (FOR ANES.) As Ordered ONE (10:29)
[2021-01-18] MEDS ORDERED: SUGAMMADEX SODIUM 500 MG/5 ML VIAL (BRIDION) As Ordered ONE (10:30)
[2021-01-18] MEDS ORDERED: KETOROLAC 60MG 2ML VIAL As Ordered ONE (10:30)
[2021-01-18] MEDS ORDERED: fentaNYL 100 MCG/2 ML INJECTION (J3010) As Ordered ONE ×2 (10:30→14:25)
[2021-01-18] MEDS ORDERED: ONDANSETRON 4MG/2ML VIAL As Ordered ONE (10:30)
[2021-01-18] MEDS ORDERED: ACETAMINOPHEN 1000MG 100ML IV BTL (OFIRMEV) (J0131 PER 10MG) As Ordered ONE (10:30)
[2021-01-18] MEDS ORDERED: ROCURONIUM BROMIDE 50 MG/5 ML VIAL As Ordered ONE (10:30)
[2021-01-18] MEDS ORDERED: dexameTHASONE 4 MG/ML 1ML VIAL (J1100 PER 1MG) As Ordered ONE (10:30)
[2021-01-18] MEDS ORDERED: MIDAZOLAM INJ 2MG/2ML VIAL (J2250 PER 1MG) As Ordered ONE (10:30)
[2021-01-18] MEDS ORDERED: BUPIVACAINE HCL 0.25% 30ML VIAL As Ordered ONE (13:19)
--- NOTE | 2021-01-18 13:22 | ROOPDOC ---
[facility] Report Of Operation Report of Operation DATE OF PROCEDURE: 01/18/21 PREPROCEDURE DIAGNOSES: Satisfied parity with undesired fertility. POSTPROCEDURE DIAGNOSES: Satisfied parity with undesired fertility. PROCEDURE: Diagnostic operative laparoscopy with bilateral salpingectomy for purpose of tubal ligation. SURGEON: Leilani Burgess MD SOAP MAKER: None ANESTHESIA: General endotracheal anesthesia. INTRAVENOUS FLUIDS: 800 mL of lactated Ringer's solution. ESTIMATED BLOOD LOSS: Approximately 5 mL. URINE OUTPUT: 200 mL. PREOPERATIVE ANTIBIOTICS: None. SPECIMENS: Bilateral fallopian tubes. COMPLICATIONS: None OPERATIVE FINDINGS: Patient with normal appearing uterus and bilateral adnexa. DESCRIPTION OF PROCEDURE: After informed consent was obtained and written consent was reviewed, the patient was brought to the operating room where she was placed under general endotracheal anesthesia. She was then placed in the lithotomy position. She was prepped and draped in a normal sterile fashion. A time-out in the operating room was then performed identifying the patient, procedure to be performed, as well as drug allergies. Huntington speculum was then placed revealing the cervix. The anterior lip of the cervix was grasped with a single-tooth tenaculum. A Hulka tenaculum was then advanced through the cervical os for a means to manipulate the uterus. Single-tooth tenaculum as well as the speculum was removed. Bladder was drained. Gloves were changed. Attention was turned to the patient's abdomen where 0.25% Marcaine was infused in umbilical region. This area was incised and a 5 mm trocar and sleeve was advanced through this incision. The laparoscope was then replaced revealing intraabdominal placement. Pneumoperitoneum was then obtained with CO2 gas. The abdomen was then surveyed with the above-noted findings. Two additional port sites were placed. One port site was placed 2 cm above the pubis symphysis in the midline. This area was infused with 0.25% Marcaine. An incision was made in this area and 8 mm trocar and sleeve was advanced through this incision under direct visualization. A second accessory port was placed left side of the patient's abdomen. This area was infused with 0.25% Marcaine. A 5 mm trocar and sleeve was advanced through this incision under direct visualization. Next, the right fallopian tube was then placed on traction. Using Harmonic Johnathon scalpel device, the mesosalpinx was dissected underneath the fallopian tube and was transected at the level of the uterus. Specimen was then brought out the port site. In a similar fashion, left fallopian tube was dissected along the left mesosalpinx underneath the fallopian tube and transected at the level of the uterus. The specimen was removed. Surgical sites were inspected and noted to be hemostatic. Pneumoperitoneum was then released and port sites were then closed with #4-0 Monocryl and was dressed with Dermabond. Lira catheter as well as a Hulka tenaculum was removed. The patient was then taken out of the lithotomy position, was awakened from general anesthesia and taken to recovery in stable condition. Counts were correct. LEILANI BURGESS MD. Jan 18, 2021 13:22
[2021-01-18] MEDS ORDERED: diphenhydrAMINE 50MG/ML VIAL (J1200) As Ordered ONE (13:30)
[2021-01-18] MEDS ORDERED: LABETALOL 100MG/20ML VIAL As Ordered ONE (13:40)
[2021-01-18] MEDS ORDERED: MORPHINE 4 MG/ML 1ML VIAL/SYRINGE (J2270) As Ordered ONE (14:08)
[2021-01-18] MEDS: LABETALOL 100MG/20ML VIAL IV PRN ×3 (14:10→14:39)
[2021-01-18] MEDS: MORPHINE 2 MG/ML 1ML VIAL (J2270) IV PRN ×2 (14:11→14:16)
[2021-01-18] MEDS ORDERED: oxyCODONE 5MG TAB PO PRN (14:25)
[2021-01-18] MEDS ORDERED: fentaNYL 100 MCG/2 ML INJECTION (J3010) IV PRN (14:25)
[2021-01-18] MEDS ORDERED: hydrALAZINE 20MG/ML 1ML VIAL (J0360 PER 20MG) IV PRN (14:25)
[2021-01-18] MEDS ORDERED: ONDANSETRON 4MG/2ML VIAL IV PRN (14:25)
[2021-01-18] MEDS ORDERED: LR 1,000 ML IV SCH (14:25)
[2021-01-18] MEDS ORDERED: KETOROLAC 30 MG/ML 1ML VIAL IV SCH (14:30)
[2021-01-18] MEDS ORDERED: PERCOCET 5MG/325MG TAB PO PRN (14:30)
[2021-01-18 15:38] VITALS: BP 150/82
== END 2021-01-18 15:40 | disposition home or self-care (01) ==
LOC: M SDC 08:51
PROVIDERS: ATTEND Obstetrics & Gynecology
DX: Z30.2 Encounter for sterilization (principal); F43.10 Post-traumatic stress disorder, unspecified; F31.9 Bipolar disorder, unspecified; G43.909 Migraine, unspecified, not intractable, without status migrainosus; I10 Essential (primary) hypertension; Z79.899 Other long term (current) drug therapy; Z88.5 Allergy status to narcotic agent
CPT/HCPCS: 36415; 58661; 81025; 85027; 86850; 86900; 86901; 88302; J0131; J1100; J1200; J1885; J2250; J2270; J2405; J3010